=== PATIENT | female | born 1935 | race Caucasian/White ===

== ENCOUNTER → 2016-08-06 | Outpatient (CLI) | payer MEDICARE ==
[~2016-08-06] VITALS: Ht 154.9 cm; Wt 51.6 kg
[~2016-08-06] MED LIST: CARV12.5 PO; FERR1TAB36 PO; FURO1TAB62 PO; GAS-80CH CHEW; INSULIN HUMAN REGULAR 1,000 UNITS/10 ML VIAL SQ PRN; LACTATED RINGER'S 1000 ML IV SCH; LOVA40TA PO; METOPROLOL TARTRATE 25 MG TAB PO PRN; PANT40TA3 PO; PROPOFOL 200 MG/20 ML AMP IV ONE; SODIUM CHLORID 0.9% 500 ML IV SCH
[2016-08-06 11:03] VITALS: BP 166/69; PULSE 59; RESP 20; TEMP 97.5; O2SAT 99
[2016-08-06 12:53] VITALS: TEMP 97.6
--- NOTE | 2016-08-06 12:53 | PD.PROCEDR ---
GI Procedure REFERRING PHYSICIAN Dr. Caputo PROCEDURE PERFORMED EGD INDICATION FOR PROCEDURE Follow-up on gastric and duodenal ulcer PROCEDURE: The procedure, risks and benefits were discussed with Ms. Marino and informed consent was obtained. Anesthesia sedated her with Diprivan. She was placed in the left lateral decubitus position. EGD: The Pentax videoscope was introduced through the oropharynx and advanced to the second portion of the duodenum under direct visualization. Retroflexion was performed in the stomach. FINDINGS: The esophagus this was normal The stomach this was normal The duodenum this was normal ESTIMATED BLOOD LOSS: None SPECIMENS REMOVED: None COMPLICATIONS: None IMPRESSION: Normal EGD PLAN: Continue with current therapy Follow-up as needed Vivek Jeong MD Aug 06, 2016 12:53
[2016-08-06 13:03] VITALS: BP 149/66; PULSE 60; RESP 16; O2SAT 100
== END ==
LOC: HEND 09:57
PROVIDERS: ATTEND Internal Medicine Gastroenterology
DX: D64.9 Anemia, unspecified (principal); Z87.11 Personal history of peptic ulcer disease; I12.9 Hypertensive chronic kidney disease with stage 1 through stage 4 chronic kidney disease, or unspecified chronic kidney disease; N18.4 Chronic kidney disease, stage 4 (severe); Z79.82 Long term (current) use of aspirin
CPT/HCPCS: 00740; 43235; J7120

== ENCOUNTER 2018-06-01 09:39 | Inpatient (IN) ==
--- NOTE | 2018-06-01 10:08 | ED ---
HPI General Chief complaint: Shortness of Breath/Dyspnea Stated complaint: Resp complaint Time Seen by Provider: 06/01/18 09:40 History of Present Illness HPI narrative: Patient is a 82-year-old female with a history of chronic kidney disease, CHF, COPD presents emergency department with shortness of breath since yesterday. Patient states last time this happened she was diagnosed with fluid on her lungs had to be placed in the hospital on Lasix. She patient states she is on Lasix at home with her intervention manager whom she believes is Dr. Collier. She states recently she was switched from Lasix twice daily to Lasix daily. Denies any cough congestion fevers. Does endorse some sneezing fits. No chest pain no abdominal pain no nausea vomiting diarrhea constipation. No leg swelling. Related Data Home Medications Medication Instructions Recorded Confirmed amlodipine 10 mg PO DAILY 06/01/18 06/01/18 carvedilol 25 mg PO BID 06/01/18 06/01/18 furosemide [Lasix] 20 mg PO DAILY 06/01/18 06/01/18 lovastatin 40 mg PO QPM 06/01/18 06/01/18 Allergies Allergy/AdvReac Type Severity Reaction Status Date / Time No Known Allergies Allergy Verified 06/01/18 09:45 Review of Systems ROS: all other systems reviewed are negative PMFSH Social History Social History Substance History: No History of Abuse Second Hand Smoke Exposure: No Smoking Status: Former smoker Tobacco Type: Cigarettes How Often Do You Have a Drink Containing Alcohol: Never Recent Travel in [facility] within the Last 8 Weeks: No Recent Out of Country Travel within the Last 8 Weeks: No Immunization History Tetanus Immunization: <5 Years Exam Narrative Exam Narrative: GENERAL: Well-developed well-nourished, mild tachypnea, able to speak in full sentences. SKIN: Focused skin assessment warm/dry. HEAD: Atraumatic. Normocephalic. EYES: Pupils equal and round. No scleral icterus. No injection or drainage. ENT: No nasal bleeding or discharge. Mucous membranes pink and moist. NECK: Trachea midline. No JVD. CARDIOVASCULAR: Regular rate and rhythm. No murmur appreciated. RESPIRATORY: No accessory muscle use. Patient has bibasilar rales, rales could also be heard anteriorly or bad laterally. There is good air entry, scant wheeze and expiratory only.. Breath sounds equal bilaterally. GASTROINTESTINAL: Abdomen soft, non-tender, nondistended. Hepatic and splenic margins not palpable. MUSCULOSKELETAL: No obvious deformities. No clubbing. No cyanosis. No edema. NEUROLOGICAL: Awake and alert. No obvious cranial nerve deficits. Motor grossly within normal limits. Normal speech. PSYCHIATRIC: Appropriate mood and affect; insight and judgment normal. Course Initial Documented Vital Signs Pulse Rate 60 06/01/18 09:49 Respiratory Rate 19 06/01/18 09:49 Blood Pressure 149/68 H 06/01/18 09:49 Pulse Oximetry 86 L 06/01/18 09:49 Last Documented Vital Signs Temperature 98.1 F 06/02/18 00:00 Pulse Rate 61 06/02/18 00:00 Respiratory Rate 18 06/02/18 00:00 Blood Pressure 128/60 06/02/18 00:00 Pulse Oximetry 93 L 06/02/18 00:00 Medical Decision Making MDM Narrative Medical decision making narrative: Patient room to the emergency department, rales heard throughout her lung [place], mildly hypoxic on room air she was placed on nasal cannula. She is followed by Dr. Caputo until his mcc. She is also seeing Dr. Collier and intervention manager. Chest x-ray does show some pulmonary vascular congestion. Review of an echocardiogram in 2016 showed moderate aortic stenosis and mild mitral regurgitation. EF was not listed. Patient was given 40 mg of Lasix, will discuss with [facility] for admission status for acute congestive heart failure with hypoxia. Medical Screen Exam Complete: Yes Emergency Medical Condition: Yes Lab Data Result diagrams: 06/01/18 10:33 06/02/18 04:15 Lab Results 06/01/18 06/01/18 06/01/18 Range/Units 10:33 10:33 10:33 WBC 5.9 (4.0-11.0) th/mm3 RBC 3.51 L (4.00-5.30) mil/mm3 Hgb 10.7 L (11.6-15.3) gm/dL Hct 31.4 L (35.0-46.0) % MCV 89.5 (80.0-100.0) fL MCH 30.6 (27.0-34.0) pg MCHC 34.2 (32.0-36.0) % RDW 13.7 (11.6-17.2) % Plt Count 264 (150-450) th/mm3 MPV 8.2 (7.0-11.0) fL Neut % (Auto) 70.7 H (16.0-70.0) % Lymph % (Auto) 14.7 (9.0-44.0) % [place] % (Auto) 7.4 (0.0-8.0) % Eos % (Auto) 6.4 H (0.0-4.0) % Baso % (Auto) 0.8 (0.0-2.0) % Neut # (Auto) 4.1 (1.8-7.7) th/mm3 Lymph # (Auto) 0.9 L (1.0-4.8) th/mm3 Hancock # (Auto) 0.4 (0.0-0.9) th/mm3 Eos # (Auto) 0.4 (0.0-0.4) th/mm3 Baso # (Auto) 0.0 (0.0-0.2) th/mm3 WBC Differential . Differential Comment Auto diff final Sodium 139 (136-145) meq/L Potassium 4.6 (3.5-5.1) meq/L Chloride 103 (98-107) meq/L Carbon Dioxide 28.8 (21.0-32.0) meq/L Anion Gap 7 (5-15) meq/L BUN 26 H (7-18) mg/dL Creatinine 2.01 H (0.50-1.00) mg/dL Estimated GFR 24 L (>89) mL/min Random Glucose 93 (74-106) mg/dL Calcium 8.9 (8.5-10.1) mg/dL Total Bilirubin 0.4 (0.2-1.0) mg/dL AST 18 (15-37) U/L ALT 17 (10-53) U/L Alkaline Phosphatase 70 (45-117) U/L Troponin I Less than 0.02 L (0.02-0.05) ng/mL B-Natriuretic Peptide 273 H (0-100) pg/mL Total Protein 8.2 (6.4-8.2) g/dL Albumin 3.8 (3.4-5.0) g/dL Urine Color (Yellw/Straw) Urine Clarity (Clear) Urine pH (5.0-8.5) Ur Specific [place] (1.002-1.035) Urine Protein (Neg-Trace) mg/dL Urine Glucose (UA) (Negative) mg/dL Urine Ketones (Negative) mg/dL Urine Occult Blood (Negative) Urine Nitrate (Negative) Urine Bilirubin (Negative) Urine Urobilinogen (Less than 2) mg/dL Ur Leukocyte Esterase (Negative) Urine RBC (0-3) /hpf Urine WBC (0-5) /hpf Ur Squamous Epith Cells (0-5) /hpf Urine Bacteria (None) /hpf Micro UA Comment Ur Microscopic Review Urine Culture Comments 06/01/18 06/02/18 Range/Units 13:00 04:15 WBC (4.0-11.0) th/mm3 RBC (4.00-5.30) mil/mm3 Hgb (11.6-15.3) gm/dL Hct (35.0-46.0) % MCV (80.0-100.0) fL MCH (27.0-34.0) pg MCHC (32.0-36.0) % RDW (11.6-17.2) % Plt Count (150-450) th/mm3 MPV (7.0-11.0) fL Neut % (Auto) (16.0-70.0) % Lymph % (Auto) (9.0-44.0) % [place]ancock % (Auto) (0.0-8.0) % Eos % (Auto) (0.0-4.0) % Baso % (Auto) (0.0-2.0) % Neut # (Auto) (1.8-7.7) th/mm3 Lymph # (Auto) (1.0-4.8) th/mm3 [place]ancock # (Auto) (0.0-0.9) th/mm3 Eos # (Auto) (0.0-0.4) th/mm3 Baso # (Auto) (0.0-0.2) th/mm3 WBC Differential Differential Comment Sodium 142 (136-145) meq/L Potassium 4.2 (3.5-5.1) meq/L Chloride 104 (98-107) meq/L Carbon Dioxide 30.3 (21.0-32.0) meq/L Anion Gap 8 (5-15) meq/L BUN 26 H (7-18) mg/dL Creatinine 1.89 H (0.50-1.00) mg/dL Estimated GFR 25 L (>89) mL/min Random Glucose 70 L (74-106) mg/dL Calcium 8.7 (8.5-10.1) mg/dL Total Bilirubin 0.4 (0.2-1.0) mg/dL AST 16 (15-37) U/L ALT 13 (10-53) U/L Alkaline Phosphatase 60 (45-117) U/L Troponin I (0.02-0.05) ng/mL B-Natriuretic Peptide (0-100) pg/mL Total Protein 7.0 D (6.4-8.2) g/dL Albumin 3.2 L D (3.4-5.0) g/dL Urine Color Yellow (Yellw/Straw) Urine Clarity Hazy H (Clear) Urine pH 5.0 (5.0-8.5) Ur Specific [place] 1.012 (1.002-1.035) Urine Protein 100 H (Neg-Trace) mg/dL Urine Glucose (UA) Negative (Negative) mg/dL Urine Ketones Negative (Negative) mg/dL Urine Occult Blood Negative (Negative) Urine Nitrate Negative (Negative) Urine Bilirubin Negative (Negative) Urine Urobilinogen Less than 2 (Less than 2) mg/dL Ur Leukocyte Esterase Moderate H (Negative) Urine RBC 1 (0-3) /hpf Urine WBC 11 H (0-5) /hpf Ur Squamous Epith Cells <1 (0-5) /hpf Urine Bacteria Rare H (None) /hpf Micro UA Comment Culture indicated Ur Microscopic Review Not Reportable Urine Culture Comments Culture indicated Imaging Data Radiologist's impression: Chest X-Ray 06/01/18 10:31 CONCLUSION: 1. Cardiomegaly with pulmonary vascular congestion. 2. Small bilateral pleural effusions with associated lower lobe airspace disease. Chest X-Ray 06/02/18 08:00 CONCLUSION: Overall improvement in pleural effusions and right lung base consolidation. Discharge Plan Discharge Disposition Patient Disposition: 30 Still Patient Discharge Condition Condition: Fair Discharge Details Diagnosis: SOB (shortness of breath), Acute exacerbation of CHF (congestive heart failure) , Hypoxia Physicians Team ED Provider: Eliel Lee Primary Care Provider: UNKNOWN, Attending Provider: Vahid Yin Discharge Interventions Interventions: ED Discharge Assessment Last Done: 06/01/18 16:44 Status ED Status: Left Department Discharge Information Discharge Date/Time: 06/01/18 16:40
[2018-06-01 11:10] LABS: Baso % (Auto) 0.8 % (0.0-2.0); Eos # (Auto) 0.4 th/mm3 (0.0-0.4); Eos % (Auto) 6.4 % (0.0-4.0); Hematocrit 31.4 % (35.0-46.0); Hemoglobin 10.7 gm/dL (11.6-15.3); Lymph # (Auto) 0.9 th/mm3 (1.0-4.8); Lymph % (Auto) 14.7 % (9.0-44.0); Mean Corpuscular HGB Conc 34.2 % (32.0-36.0); Mean Corpuscular Hemoglobin 30.6 pg (27.0-34.0); Mean Corpuscular Volume 89.5 fL (80.0-100.0); Mean Platelet Volume 8.2 fL (7.0-11.0); Mono # (Auto) 0.4 th/mm3 (0.0-0.9); Mono % (Auto) 7.4 % (0.0-8.0); Neut # (Auto) 4.1 th/mm3 (1.8-7.7); Neut % (Auto) 70.7 % (16.0-70.0); Platelet Count 264 th/mm3 (150-450); Red Blood Count 3.51 mil/mm3 (4.00-5.30); Red Cell Distribution Width 13.7 % (11.6-17.2); White Blood Count 5.9 th/mm3 (4.0-11.0)
--- NOTE | 2018-06-01 11:13 | XR ---
EXAM DATE: 06/01/2018 11:08 AM EST AGE/SEX: 82 years / Female INDICATIONS: . Shortness of breath with wheezing. CLINICAL DATA: This is the patient's initial encounter. Patient reports that signs and symptoms have been present for 1 day and indicates a pain score of 0/10. MEDICAL/SURGICAL HISTORY: Chronic obstructive pulmonary disease. Congestive heart failure. Non e. COMPARISON: [facility] – [place], CHEST SINGLE AP, 06/12/2016. . FINDINGS: Small bilateral pleural effusions with associated airspace disease at the lung bases. Mild diffuse in terstitial prominence slightly progressed from prior exam. Cardiac silhouette is enlarged with indist inct central pulmonary vascularity. Remainder of exam is unchanged. CONCLUSION: 1. Cardiomegaly with pulmonary vascular congestion. 2. Small bilateral pleural effusions with associated lower lobe airspace disease. Electronically signed by: Sahil Ovalle MD 06/01/2018 11:12 AM EST
[2018-06-01 11:36] LABS: Albumin 3.8 g/dL (3.4-5.0); Anion Gap 7 meq/L (5-15); Aspartate Aminotransferase 18 U/L (15-37); Blood Urea Nitrogen 26 mg/dL (7-18); Calcium 8.9 mg/dL (8.5-10.1); Carbon Dioxide 28.8 meq/L (21.0-32.0); Chloride 103 meq/L (98-107); Glomerular Filtration Rate 24 mL/min (>89); Glucose,Random 93 mg/dL (74-106); Potassium 4.6 meq/L (3.5-5.1); Sodium 139 meq/L (136-145)
[2018-06-01 11:40] LABS: Alanine Aminotransferase 17 U/L (10-53); Alkaline Phosphatase 70 U/L (45-117); Total Protein 8.2 g/dL (6.4-8.2)
[2018-06-01] MEDS ORDERED: Acetaminophen 325 MG Tablet PO PRN (12:20)
--- NOTE | 2018-06-01 13:51 | P.HPIM ---
History of Present Illness Primary Care Physician: Roya Wu Chief Complaint: Worsening SOB x 1 day History of Present Illness: This is an 82-year-old female patient with past medical history which includes hypertension, CAD status post PCI with D EMS to the RCA 2010 and LAD 2009, aortic stenosis, pulmonary hypertension, peripheral vascular disease, intermitted claudication, chronic kidney disease stage IV, secondary hyperparathyroidism of renal origin. Patient reports her valet service attendant Dr. Chavarria recently switched her from twice a day Lasix to once a day Lasix. Patient reports that she has had worsening shortness of breath which started yesterday during the day. Patient is currently requiring 3 L nasal cannula which she does not normally on oxygen at home. Patient denies nausea vomiting diarrhea constipation fevers chills weight gain lower extremity edema or chest pain. PMH: hypertension, CAD status post PCI with [facility] to the RCA 2010 and LAD 2009, aortic stenosis, pulmonary hypertension, peripheral vascular disease, intermitted claudication, chronic kidney disease stage IV, secondary hyperparathyroidism of renal origin PSxH: Appendectomy, [facility] to the RCA 2010 and LAD 2009, colonoscopy, sigmoidoscopy, hysterectomy, thromboendarterectomy FMH: CHF, diabetes mellitus, esophageal cancer Social history: Denies EtOH use Former tobacco use Denies illicit drug use Inpatient Certification Inpatient Certification: I certify that the inpatient services were ordered in accordance with Medicare regulations governing the order. This includes certification that hospital inpatient services are reasonable and necessary and in the case of services not specified as inpatient-only under 42 CFR 419.22(n), that they are appropriately provided as inpatient services in accordance to with the 2-midnight benchmark under 43 CFR 412.3(e) Estimated Total Length of Stay (Days): 3 Plans for Post Hospital Care: Not yet determined Medications and Allergies Allergies Allergy/AdvReac Type Severity Reaction Status Date / Time No Known Allergies Allergy Verified 06/01/18 09:45 Home Medications Medication Instructions Recorded Confirmed Type amlodipine 10 mg PO DAILY 06/01/18 06/01/18 History carvedilol 25 mg PO BID 06/01/18 06/01/18 History furosemide [Lasix] 20 mg PO DAILY 06/01/18 06/01/18 History lovastatin 40 mg PO QPM 06/01/18 06/01/18 History Active Medications: Active Medications Acetaminophen (Tylenol) 650 mg PO Q4H PRN PRN Reason: Temp > 100.4 Al Hydroxide/Mg Hydroxide (Milk Of Reema Marie) 30 ml PO Q12H PRN PRN Reason: Mild Constipation Amlodipine Besylate (Norvasc) 10 mg PO DAILY NATAN Carvedilol (Coreg) 25 mg PO BID NATAN Clonidine HCl (Catapres) 0.2 mg PO Q6H PRN PRN Reason: SBP>160, DBP>90 Enalaprilat (Vasotec Inj) 2.5 mg IV.PUSH Q6H PRN PRN Reason: SYS BP GREATER THAN 160 MMHG Furosemide (Lasix Inj) 40 mg IV.PUSH BID@0900,1800 NATAN Ondansetron HCl (Zofran Inj) 4 mg IV.PUSH Q6H PRN PRN Reason: NAUSEA OR VOMITING Pravastatin Sodium (Pravachol) 40 mg PO QPM NATAN Senna/Docusate Sodium (Loyda-Colace) 1 tab PO BID NATAN Sodium Chloride (Ns Flush) 2 ml IV.FLUSH UNSCH PRN PRN Reason: FLUSH AFTER USING IV ACCESS Last Admin: 06/01/18 12:12 Dose: 2 ml Physical Exam Vital signs: Last Vital Signs Temp 97.6 F 06/01/18 09:51 Pulse 67 06/01/18 12:57 Resp 21 06/01/18 12:57 BP 138/105 H 06/01/18 12:57 Pulse Ox 96 06/01/18 12:57 Narrative: GENERAL: This is a well-nourished, well-developed patient, in no apparent distress. CARDIOVASCULAR: Regular rate and rhythm without murmurs, gallops, or rubs. RESPIRATORY: faint crackles right lung base GASTROINTESTINAL: Abdomen soft, non-tender, nondistended. Normal active bowel sounds MUSCULOSKELETAL: Extremities without clubbing, cyanosis, or edema. NEURO: Alert & Oriented. Moves all ext x4 Results Labs CBC & Chem 7: 06/01/18 10:33 06/01/18 10:33 Caprini VTE Risk Assessment Caprini VTE Risk Assessment: Moderate/High Risk (score >= 2) Caprini Risk Assessment Model: Point Value = 1 Point Value = 2 Point Value = 3 Point Value = 5 Age 41-60 Minor surgery BMI > 25 kg/m2 Swollen legs Varicose veins or History of unexplained or recurrent spontaneous Oral contraceptives or hormone replacement Sepsis (< 1 month) Serious lung disease, including pneumonia (< 1 month) Abnormal pulmonary function Acute myocardial infarction Congestive heart failure (< 1 month) History of inflammatory bowel disease Medical patient at bed rest Age 61-74 Arthroscopic surgery Major open surgery (> 45 min) Laparoscopic surgery (> 45 min) Malignancy Confined to bed (> 72 hours) Immobilizing plaster cast Central venous access Age >= 75 History of VTE Family history of VTE Factor V Leiden Prothrombin [id number] Lupus anticoagulant Anticardiolipin antibodies Elevated serum homocysteine Heparin-induced thrombocytopenia Other congenital or acquired thrombophilia Stroke (< 1 month) Elective arthroplasty Hip, pelvis, or leg fracture Acute spinal cord injury (< 1 month) Prophylaxis Regimen: Total Risk Factor Score Risk Level Prophylaxis Regimen 0-1 Low Early ambulation 2 Moderate Order ONE of the following: *Sequential Compression Device (SCD) *Heparin 5000 units SQ BID 3-4 Higher Order ONE of the following medications: *Heparin 5000 units SQ TID *Enoxaparin/Lovenox 40 mg SQ daily (WT < 150 kg, CrCl > 30 mL/min) *Enoxaparin/Lovenox 30 mg SQ daily (WT < 150 kg, CrCl > 10-29 mL/min) *Enoxaparin/Lovenox 30 mg SQ BID (WT < 150 kg, CrCl > 30 mL/min) AND/OR *Sequential Compression Device (SCD) 5 or more Highest Order ONE of the following medications: *Heparin 5000 units SQ TID (Preferred with Epidurals) *Enoxaparin/Lovenox 40 mg SQ daily (WT < 150 kg, CrCl > 30 mL/min) *Enoxaparin/Lovenox 30 mg SQ daily (WT < 150 kg, CrCl > 10-29 mL/min) *Enoxaparin/Lovenox 30 mg SQ BID (WT < 150 kg, CrCl > 30 mL/min) AND *Sequential Compression Device (SCD) Assessment and Plan Plan This is an 82-year-old female patient with past medical history which includes hypertension, CAD status post PCI with D EMS to the RCA 2010 and LAD 2009, aortic stenosis, pulmonary hypertension, peripheral vascular disease, intermitted claudication, chronic kidney disease stage IV, secondary hyperparathyroidism of renal origin. Patient reports her valet service attendant Dr. Chavarria recently switched her from twice a day Lasix to once a day Lasix. Patient reports that she has had worsening shortness of breath which started yesterday during the day. Patient is currently requiring 3 L nasal cannula which she does not normally on oxygen at home. Patient denies nausea vomiting diarrhea constipation fevers chills weight gain lower extremity edema or chest pain. Acute CHF exacerbation Per patient home lasix was recently reduced to once a day per outpatient Nephrology BNP 273 CXR reviewed and reveals: 1. Cardiomegaly with pulmonary vascular congestion. 2. Small bilateral pleural effusions with associated lower lobe airspace disease Lasix 40mg IV BID Continuous telemetry Daily weight Recheck BMP in AM CAD status post PCI with [facility] to the RCA 2010 and LAD 2009, Aortic stenosis Pulmonary hypertension, CHF unknown type 2 D echocardiogram Hypertension Continue patients home amlodipine 10 mg PO daily, Carvedilol 25 mg Po BID Hyperlipidemia Continue Lovastatin 40 mg PO QPM Chronic kidney disease stage IV Monitor renal function Repeat BMP in AM PT eval and treat DVT prophylaxis with SCDs
[2018-06-01 14:10] LABS: Bacteria,Urine Rare /hpf; Bilirubin,Urine Negative (Negative); Clarity,Urine Hazy (Clear); Color,Urine Yellow (Yellw/Straw); Glucose,Urine (UA) Negative (Negative); Leukocyte Esterase,Urine Moderate (Negative); Nitrite,Urine Negative (Negative); Specific Gravity,Urine 1.012 (1.002-1.035); Squamous Epithelial Cell,Urine <1 /hpf (0-5)
--- NOTE | 2018-06-01 18:20 | ECG ---
Date Performed: 06/01/2018 Time Performed: 09:52:08 PTAGE: 82 years EKG: SINUS BRADYCARDIA NONSPECIFIC T-WAVE ABNORMALITY BORDERLINE ECG PREVIOUS TRACING : 06/13/2016 04.11 Since the previous tracing, no significant change noted DOCTOR: Herbert Escobar Interpretating Date/Time 06/01/2018 18:19:35
[2018-06-01] MEDS: Carvedilol 12.5 MG Tablet PO SCH (21:06)
[2018-06-01] MEDS: Senna/Docusate Sodium 8.6/50 MG Tablet PO SCH (21:07)
[2018-06-02 07:03] LABS: Albumin 3.2 g/dL (3.4-5.0); Anion Gap 8 meq/L (5-15); Aspartate Aminotransferase 16 U/L (15-37); Blood Urea Nitrogen 26 mg/dL (7-18); Calcium 8.7 mg/dL (8.5-10.1); Carbon Dioxide 30.3 meq/L (21.0-32.0); Chloride 104 meq/L (98-107); Glomerular Filtration Rate 25 mL/min (>89); Glucose,Random 70 mg/dL (74-106); Potassium 4.2 meq/L (3.5-5.1); Sodium 142 meq/L (136-145)
[2018-06-02 07:06] LABS: Alanine Aminotransferase 13 U/L (10-53); Alkaline Phosphatase 60 U/L (45-117)
--- NOTE | 2018-06-02 08:20 | XR ---
EXAM DATE: 06/02/2018 8:12 AM EST AGE/SEX: 82 years / Female INDICATIONS: . Short of breath CLINICAL DATA: This is the patient's subsequent encounter. Patient reports that signs and symptoms h ave been present for 3 days and indicates a pain score of 0/10. MEDICAL/SURGICAL HISTORY: Congestive heart failure. Chronic obstructive pulmonary disease. Con gestive heart failure. None. COMPARISON: [facility] – [place], CHEST 2V PA&LAT, 06/01/2018. . FINDINGS: The previously seen bilateral pleural effusions appear smaller with a tiny left pleural effusion and a small right pleural effusion remaining. Slight cardiomegaly remains with mild prominence of interst itial markings and the slight consolidation right lung base is also suspected, however improved. CONCLUSION: Overall improvement in pleural effusions and right lung base consolidation. Electronically signed by: Henna Nuno MD 06/02/2018 8:19 AM EST
[2018-06-02] MEDS ORDERED: amLODIPine 10 MG Tablet PO SCH (09:00)
[2018-06-02] MEDS: Carvedilol 12.5 MG Tablet PO SCH (10:32)
[2018-06-02] MEDS: Senna/Docusate Sodium 8.6/50 MG Tablet PO SCH (10:32)
--- NOTE | 2018-06-02 11:55 | P.DCO ---
Home Health Nursing Order: Medical education, Signs/symptoms of disease process, CHF education, Oxygen administration education, Medication education-adverse effect and Nursing assessment with vital signs Case Management Consult No I have seen patient Isabel Marino on 06/02/18. My clinical findings support the need for the requested home health care services because: Limited mobility due to disease progression, Patient has SOB, Medication compliance is questionable, Limited ability to care for self and Need for psychosocial assistance I certify that my clinical findings support that this patient is homebound because: Unsafe to leave home unassisted, Need for psychosocial assistance, Unable to use public transportation and Poor cardiac reserve
--- NOTE | 2018-06-02 13:04 | ECHRPT ---
Indication: HEART FAILURE CONCLUSIONS Mild concentric left ventricular hypertrophy. The left ventricular systolic function is normal with an estimated ejection fraction in the range of 55-60%. Mild to moderate mitral valve regurgitation. Aortic valve sclerosis is present. Mild to moderate aortic valve regurgitation. There is mild tricuspid valve regurgitation. The estimated pulmonary arterial pressure is 48 mmHg. BP: / HR: Rhythm: Sinus MEASUREMENTS (Male / Female) Normal Values Technical Quality:Fair 2D ECHO LV Diastolic Diameter PLAX 3.4 cm 4.2 - 5.9 / 3.9 - 5.3 cm LV Systolic Diameter PLAX 2.6 cm IVS Diastolic Thickness 0.9 cm 0.6 - 1.0 / 0.6 - 0.9 cm LVPW Diastolic Thickness 1.2 cm 0.6 - 1.0 / 0.6 - 0.9 cm LV Relative Wall Thickness 0.6 LVOT Diameter 1.8 cm LA Systolic Diameter LX 3.0 cm 3.0 - 4.0 / 2.7 - 3.8 cm LV Ejection Fraction MOD 4C 55.4 % LV Ejection Fraction 4C AL 54.9 % DOPPLER AV Peak Velocity 229.0 cm/s AV Peak Gradient 21.0 mmHg AV Mean Gradient 11.0 mmHg AV Velocity Time Integral 53.5 cm AI Peak Velocity 312.5 cm/s AI Peak Gradient 39.1 mmHg AI Pressure Half Time 408.0 ms LVOT Peak Velocity 123.0 cm/s LVOT Peak Gradient 6.1 mmHg LVOT Velocity Time Integral 27.7 cm AV Area Cont Eq vti 1.4 cm AV Area Cont Eq pk 1.4 cm MR Peak Velocity 452.0 cm/s MR Peak Gradient 81.7 mmHg Mitral E Point Velocity 116.0 cm/s Mitral A Point Velocity 87.6 cm/s Mitral E to A Ratio 1.3 LV E' Lateral Velocity 10.4 cm/s Mitral E to LV E' Lateral Ratio 11.2 LV E' Septal Velocity 8.2 cm/s Mitral E to LV E' Septal Ratio 14.2 TR Peak Velocity 309.0 cm/s TR Peak Gradient 38.2 mmHg Right Atrial Pressure 10.0 mmHg Pulmonary Artery Systolic Pressu 48.2 mmHg Right Ventricular Systolic Press 48.2 mmHg PV Peak Velocity 89.8 cm/s PV Peak Gradient 3.2 mmHg FINDINGS LEFT VENTRICLE Normal left ventricular size. Mild concentric left ventricular hypertrophy. The left ventricular systolic function is normal with an estimated ejection fraction in the range of 55-60%. RIGHT VENTRICLE Normal right ventricular size and systolic function. LEFT ATRIUM The left atrial size is normal. RIGHT ATRIUM The right atrial size is normal. ATRIAL SEPTUM Normal atrial septal thickness without atrial level shunting by limited color doppler interrogation. AORTA The aortic root and proximal ascending aorta are not well visualized. MITRAL VALVE Structurally normal mitral valve. Mild mitral valve regurgitation. AORTIC VALVE Aortic valve sclerosis is present. Moderate aortic valve regurgitation. TRICUSPID VALVE Structurally normal tricuspid valve. There is mild tricuspid valve regurgitation. The estimated pulmonary arterial pressure is 48 mmHg. PULMONARY VALVE No pulmonary valve regurgitation or stenosis. PERICARDIUM No pericardial effusion. Jett Harper MD, FACC, FSCAI (Electronically Signed) Final Date:02 June 2018 13:03
--- NOTE | 2018-06-02 13:44 | P.DS ---
DS: Providers Date of admission: 06/01/18 12:33 Primary care physician: UNKNOWN DS: Diagnosis Discharge Diagnosis (1) Acute exacerbation of CHF (congestive heart failure): Status: Acute (2) Hypoxia: Status: Acute (3) SOB (shortness of breath): Status: Acute DS: Summary This is an 82-year-old female patient with past medical history which includes hypertension, CAD status post PCI with [facility] to the RCA 2010 and LAD 2009, aortic stenosis, pulmonary hypertension, peripheral vascular disease, intermitted claudication, chronic kidney disease stage IV, secondary hyperparathyroidism of renal origin. Patient reports her senior grant writer Dr. Chavarria recently switched her from twice a day Lasix to once a day Lasix. Patient reports that she has had worsening shortness of breath which started yesterday during the day. Patient is currently requiring 3 L nasal cannula which she does not normally on oxygen at home. Patient denies nausea vomiting diarrhea constipation fevers chills weight gain lower extremity edema or chest pain. Acute CHF exacerbation Per patient home lasix was recently reduced to once a day per outpatient Nephrology BNP 273 CXR reviewed and reveals: 1. Cardiomegaly with pulmonary vascular congestion. 2. Small bilateral pleural effusions with associated lower lobe airspace disease Lasix 40mg IV BID Continuous telemetry Daily weight Recheck BMP in AM CAD status post PCI with [facility] to the RCA 2010 and LAD 2009, Aortic stenosis Pulmonary hypertension, CHF unknown type 2 D echocardiogram : Mild concentric left ventricular hypertrophy. The left ventricular systolic function is normal with an estimated ejection fraction in the range of 55-60%. Mild to moderate mitral valve regurgitation. Aortic valve sclerosis is present. Mild to moderate aortic valve regurgitation. There is mild tricuspid valve regurgitation. The estimated pulmonary arterial pressure is 48 mmHg Hypertension Continue patients home amlodipine 10 mg PO daily, Carvedilol 25 mg Po BID Hyperlipidemia Continue Lovastatin 40 mg PO QPM Chronic kidney disease stage IV Monitor renal function On admission creatinine 2.01 -> 1.89 (06/02) Repeat BMP outpatient Wednesday results to PCP and Dr. Chavarria PT eval and treat - recommending home with C Discussed possible DC to SNF but patient refused at this time. Patient would like to DC home agrees to C. DVT prophylaxis with SCDs Time Spent with Patient Total time spent providing and/or coordinating discharge services: Quality: VTE Deep Vein Thrombosis/Pulmonary Embolism Present on Admission: No Exam Narrative Exam Narrative: GENERAL: This is a well-nourished, well-developed patient, in no apparent distress. CARDIOVASCULAR: Regular rate and rhythm without murmurs, gallops, or rubs. RESPIRATORY: clear through out GASTROINTESTINAL: Abdomen soft, non-tender, nondistended. Normal active bowel sounds MUSCULOSKELETAL: Extremities without clubbing, cyanosis, or edema. NEURO: Alert & Oriented. Moves all ext x4 DS: Data Labs on day of discharge: Labs from last 24 hours 06/02/18 06/01/18 04:15 13:00 Sodium 142 Potassium 4.2 Chloride 104 Carbon Dioxide 30.3 Anion Gap 8 BUN 26 H Creatinine 1.89 H Estimated GFR 25 L Random Glucose 70 L Calcium 8.7 Total Bilirubin 0.4 AST 16 ALT 13 Alkaline Phosphatase 60 Total Protein 7.0 D Albumin 3.2 L D Urine Color Yellow Urine Clarity Hazy H Urine pH 5.0 Ur Specific [place] 1.012 Urine Protein 100 H Urine Glucose (UA) Negative Urine Ketones Negative Urine Occult Blood Negative Urine Nitrate Negative Urine Bilirubin Negative Urine Urobilinogen Less than 2 Ur Leukocyte Esterase Moderate H Urine RBC 1 Urine WBC 11 H Ur Squamous Epith Cells <1 Urine Bacteria Rare H Micro UA Comment Culture indicated Ur Microscopic Review Not Reportable Urine Culture Comments Culture indicated Preliminary micro results at discharge 06/01/18 13:00 Urine Culture - Preliminary Clean Catch Urine Immature growth - reincubate Impressions Chest X-Ray 06/01/18 10:31 CONCLUSION: 1. Cardiomegaly with pulmonary vascular congestion. 2. Small bilateral pleural effusions with associated lower lobe airspace disease. Chest X-Ray 06/02/18 08:00 CONCLUSION: Overall improvement in pleural effusions and right lung base consolidation. Discharge Plan Discharge Disposition Patient Disposition: W/Home Health Service Discharge Condition Condition: Stable Discharge Order Discharge Orders: Discharge Order (Routine); Ordered 06/02/18 Ordered By: Alva Rueda Discharge Details Anticipated Discharge Date: 06/02/18 Physicians Team ED Provider: Eliel Lee Primary Care Provider: UNKNOWN, Attending Provider: Vahid Yin Rxs /Orders / Referrals /Forms Prescriptions: New furosemide [Lasix] 40 mg tablet 40 mg PO DAILY Qty: 30 RF: 0 Continue carvedilol 25 mg Tablet 25 mg PO BID RF: 0 lovastatin 40 mg Tablet 40 mg PO QPM RF: 0 amlodipine 10 mg Tablet 10 mg PO DAILY RF: 0 Discontinued furosemide [Lasix] 20 mg Tablet 20 mg PO DAILY RF: 0 Ambulatory Orders / Order Sets / DME: Oxygen Tank (2 liter) (Routine) Location: Determined by Patient Ordered By: Alav Rueda Referrals: Merced Chavarria MD [Physician] - See Instructions (Follow up in 1-2 weeks) UNKNOWN, [Primary Care Provider] - See Instructions (Follow up with PCP Roya Wu in 1 week) Discharge Instructions Additional Instructions: Possible new PCP Dr. Lynsey Huber Status ED Status: Left Department
[2018-06-02 16:36] VITALS: BP 130/60; PULSE 72; RESP 18; TEMP 98.2; O2SAT 93
== END 2018-06-02 19:17 | disposition home health service (06) ==
LOC: NEPE 09:39 → NEDA 12:33 → N07 16:34
PROVIDERS: ADMIT Hospitalist; ATTEND Hospitalist
DX: E11.51 Type 2 diabetes mellitus with diabetic peripheral angiopathy without gangrene; Z87.891 Personal history of nicotine dependence; I27.20 Pulmonary hypertension, unspecified; I08.3 Combined rheumatic disorders of mitral, aortic and tricuspid valves; N18.4 Chronic kidney disease, stage 4 (severe); Z82.49 Family history of ischemic heart disease and other diseases of the circulatory system; N25.81 Secondary hyperparathyroidism of renal origin; E11.22 Type 2 diabetes mellitus with diabetic chronic kidney disease; E78.5 Hyperlipidemia, unspecified; Z83.3 Family history of diabetes mellitus; R09.02 Hypoxemia; Z85.01 Personal history of malignant neoplasm of esophagus; I25.10 Atherosclerotic heart disease of native coronary artery without angina pectoris; Z95.5 Presence of coronary angioplasty implant and graft; J44.9 Chronic obstructive pulmonary disease, unspecified; I13.0 Hypertensive heart and chronic kidney disease with heart failure and stage 1 through stage 4 chronic kidney disease, or unspecified chronic kidney disease; I50.9 Heart failure, unspecified

== ENCOUNTER 2018-06-21 14:35 | Observation (INO) ==
[2018-06-21 15:19] LABS: Baso % (Auto) 0.6 % (0.0-2.0); Eos # (Auto) 0.3 th/mm3 (0.0-0.4); Eos % (Auto) 3.7 % (0.0-4.0); Hematocrit 31.9 % (35.0-46.0); Hemoglobin 10.3 gm/dL (11.6-15.3); Lymph # (Auto) 1.1 th/mm3 (1.0-4.8); Mean Corpuscular HGB Conc 32.4 % (32.0-36.0); Mean Corpuscular Hemoglobin 28.4 pg (27.0-34.0); Mean Corpuscular Volume 87.6 fL (80.0-100.0); Mean Platelet Volume 8.3 fL (7.0-11.0); Mono # (Auto) 0.6 th/mm3 (0.0-0.9); Mono % (Auto) 7.8 % (0.0-8.0); Neut # (Auto) 5.4 th/mm3 (1.8-7.7); Neut % (Auto) 72.9 % (16.0-70.0); Platelet Count 344 th/mm3 (150-450); Red Blood Count 3.64 mil/mm3 (4.00-5.30); Red Cell Distribution Width 13.7 % (11.6-17.2); White Blood Count 7.4 th/mm3 (4.0-11.0)
[2018-06-21 15:23] LABS: Chloride 101 meq/L (98-107); Potassium 3.7 meq/L (3.5-5.1); Sodium 140 meq/L (136-145)
[2018-06-21 15:26] LABS: Albumin 3.8 g/dL (3.4-5.0); Anion Gap 9 meq/L (5-15); Calcium 8.8 mg/dL (8.5-10.1); Carbon Dioxide 30.1 meq/L (21.0-32.0); Glucose,Random 123 mg/dL (74-106)
[2018-06-21 15:27] LABS: Blood Urea Nitrogen 34 mg/dL (7-18)
[2018-06-21 15:29] LABS: Alanine Aminotransferase 19 U/L (10-53); Aspartate Aminotransferase 19 U/L (15-37)
[2018-06-21 15:30] LABS: Glomerular Filtration Rate 31 mL/min (>89)
[2018-06-21 15:31] LABS: Total Protein 8.3 g/dL (6.4-8.2)
[2018-06-21 15:32] LABS: Alkaline Phosphatase 66 U/L (45-117)
--- NOTE | 2018-06-21 15:32 | XR ---
EXAM DATE: 06/21/2018 3:28 PM EST AGE/SEX: 82 years / Female INDICATIONS: Shortness of breath and left sided chest pain. CLINICAL DATA: This is the patient's initial encounter. Patient reports that signs and symptoms have been present for 2 weeks and indicates a pain score of 3/10. MEDICAL/SURGICAL HISTORY: Chronic obstructive pulmonary disease. Congestive heart failure. Non e. COMPARISON: [facility] – [place], CHEST 2V PA&LAT, 06/02/2018. . FINDINGS: Bibasilar infiltrates and effusions, increased from prior. Diffuse interstitial prominence grossly un changed. Visualized cardiac contours are stable. CONCLUSION: Bibasilar infiltrates and effusions Electronically signed by: Pete Abad MD 06/21/2018 3:31 PM EST
--- NOTE | 2018-06-21 15:50 | ED ---
HPI General Chief Complaint: Respiratory Symptoms Stated Complaint: CHF Time Seen by Provider: 06/21/18 15:05 Source: patient Mode of arrival: ambulatory Limitations: no limitations History of Present Illness MD Complaint: Reports shortness of breath Onset (ago): week(s) (2) Context: Reports occurred during exertion Severity: moderate Consistency/Duration: intermittent Relieving factors: rest Exacerbating factors: lying flat and exertion Known history of: Reports congestive heart failure Associated symptoms: Reports sputum production (Clear sputum) Treatment prior to arrival: Reports oxygen and diuretics Related Data Home oxygen amount: 2 liters Home Medications Medication Instructions Recorded Confirmed amlodipine 10 mg PO DAILY 06/01/18 06/21/18 carvedilol 25 mg PO BID 06/01/18 06/21/18 lovastatin 40 mg PO QPM 06/01/18 06/21/18 Previous Rx's Medication Instructions Recorded furosemide [Lasix] 40 mg PO DAILY #30 tab 06/02/18 Allergies Allergy/AdvReac Type Severity Reaction Status Date / Time No Known Allergies Allergy Verified 06/21/18 14:51 Review of Systems ROS: all other systems reviewed are negative [facility] Medical History Medical History CHF (congestive heart failure) (Acute) CKD (chronic kidney disease) (Acute) HTN (hypertension) (Acute) Myocardial infarct (Acute) Surgical History Surgical History H/O heart artery stent (Acute) Social History Social History Substance History: No History of Abuse Second Hand Smoke Exposure: No Smoking Status: Former smoker Tobacco Type: Cigarettes How Often Do You Have a Drink Containing Alcohol: Never Recent Travel in [facility] within the Last 8 Weeks: No Recent Out of Country Travel within the Last 8 Weeks: No Immunization History Tetanus Immunization: <5 Years Exam Const General: cooperative, healthy appearing, comfortable, no acute distress, well developed and well groomed Orientation: alert, awake and oriented x3 HENMT Head: normal to inspection, normocephalic and atraumatic Eyes Alignment and Position: alignment normal Conjunctivae: conjunctivae normal Sclera: sclerae normal EOM: EOM intact bilaterally Neck Neck: normal visual inspection and full ROM Chest Chest: normal inspection of the chest Resp Effort & Inspection: normal respiratory effort and able to speak in complete sentences Auscultation: diminished lung sounds and rales Cardio Rate: regular rate Rhythm: regular rhythm GI Inspection: normal to inspection Palpation: soft Back/Spine/Pelvis Cervical Spine: cervical ROM normal Thoracic/Lumbar Spine: thoraco-lumbar ROM normal Skin General: no rashes or lesions noted and turgor normal Neuro General: alert, awake, oriented x3, moves all extremities and CN's II-XI intact bilaterally Extrem General: normal to inspection and full ROM Psych Appearance: grossly normal Mental Status: mental status grossly normal Speech and Movement: speech and movement normal Mood: congruent mood Affect: normal affect Attitude: cooperative Thought Process: normal Thought Content: normal Judgment: judgment good Course Initial Documented Vital Signs Temperature 98.3 F 06/21/18 14:50 Pulse Rate 89 06/21/18 14:50 Respiratory Rate 24 06/21/18 14:50 Blood Pressure 174/78 H 06/21/18 14:50 Pulse Oximetry 84 L 06/21/18 14:50 Last Documented Vital Signs Temperature 98.3 F 06/21/18 14:50 Pulse Rate 89 06/21/18 14:50 Respiratory Rate 24 06/21/18 14:50 Blood Pressure 174/78 H 06/21/18 14:50 Pulse Oximetry 93 L 06/21/18 15:06 Medical Decision Making MDM Narrative Medical decision making narrative: This patient presents with a 2-week history of dyspnea on exertion and orthopnea. She has a history of congestive heart failure and is on chronic home oxygen at 2 L. She reports compliance with her Lasix. Her chest x-ray shows bilateral pleural effusions, right worse than left. She also has pulmonary vascular congestion. I have ordered Lasix 80 mg IV which is double her usual daily dose. The patient reports that she is amenable to admission to the hospital for further treatment of her congestive heart failure. Medical Screen Exam Complete: Yes Emergency Medical Condition: Yes Differential Diagnosis Differential Diagnosis: Differential diagnosis of dyspnea includes but is not limited to congestive heart failure, pneumonia, wheezing, pneumothorax, pulmonary embolism Medical Records Medical records reviewed: Yes I reviewed the patient's medical records. Lab Data Lab results reviewed: Yes I reviewed the patient's lab results. Result diagrams: 06/21/18 15:10 06/21/18 15:10 Lab Results 06/21/18 06/21/1806/21/18 Range/Units 15:10 15:10 15:10 CBC w Diff Auto diff final WBC 7.4 (4.0-11.0) th/mm3 RBC 3.64 L (4.00-5.30) mil/mm3 Hgb 10.3 L (11.6-15.3) gm/dL Hct 31.9 L (35.0-46.0) % MCV 87.6 (80.0-100.0) fL MCH 28.4 (27.0-34.0) pg MCHC 32.4 (32.0-36.0) % RDW 13.7 (11.6-17.2) % Plt Count 344 D (150-450) th/mm3 MPV 8.3 (7.0-11.0) fL Neut % (Auto) 72.9 H (16.0-70.0) % Lymph % (Auto) 15.0 (9.0-44.0) % [place] % (Auto) 7.8 (0.0-8.0) % Eos % (Auto) 3.7 (0.0-4.0) % Baso % (Auto) 0.6 (0.0-2.0) % Neut # (Auto) 5.4 (1.8-7.7) th/mm3 Lymph # (Auto) 1.1 (1.0-4.8) th/mm3 [place] # (Auto) 0.6 (0.0-0.9) th/mm3 Eos # (Auto) 0.3 (0.0-0.4) th/mm3 Baso # (Auto) 0.0 (0.0-0.2) th/mm3 WBC Differential . Differential Comment . Sodium 140 (136-145) meq/L Potassium 3.7 (3.5-5.1) meq/L Chloride 101 (98-107) meq/L Carbon Dioxide 30.1 (21.0-32.0) meq/L Anion Gap 9 (5-15) meq/L BUN 34 H (7-18) mg/dL Creatinine 1.60 H (0.50-1.00) mg/dL Estimated GFR 31 L (>89) mL/min Random Glucose 123 H (74-106) mg/dL Calcium 8.8 (8.5-10.1) mg/dL Total Bilirubin 0.4 (0.2-1.0) mg/dL AST 19 (15-37) U/L ALT 19 (10-53) U/L Alkaline Phosphatase 66 (45-117) U/L Troponin I Less than 0.02 L (0.02-0.05) ng/mL B-Natriuretic Peptide 328 H (0-100) pg/mL Total Protein 8.3 H (6.4-8.2) g/dL Albumin 3.8 (3.4-5.0) g/dL Imaging Data Attestation: I personally reviewed and interpreted this imaging study as follows : Radiologist's impression: Chest X-Ray 06/21/18 15:06 CONCLUSION: Bibasilar infiltrates and effusions ECG Data EKG Prior to Arrival: No Attestation: I personally reviewed and interpreted this ECG as follows: (EKG shows a sinus rhythm with a rate of 76. There is a lot of wonder making the EKG difficult to interpret. However, there does not appear to be any significant ST segment elevation or depression.) Discharge Plan Discharge Disposition Patient Disposition: 30 Still Patient Discharge Details Diagnosis: Congestive heart failure, Pleural effusion Physicians Team ED Provider: Lizett Willams Primary Care Provider: UNKNOWN, Rxs /Orders / Referrals /Forms Prescriptions: No Action carvedilol 25 mg Tablet 25 mg PO BID RF: 0 lovastatin 40 mg Tablet 40 mg PO QPM RF: 0 amlodipine 10 mg Tablet 10 mg PO DAILY RF: 0 furosemide [Lasix] 40 mg tablet 40 mg PO DAILY Qty: 30 RF: 0 Status ED Status: Pending Admission
--- NOTE | 2018-06-21 19:38 | P.HP ---
History of Present Illness Service: [facility] adult med Primary Care Physician: UNKNOWN Chief Complaint: JONES History of Present Illness: This is an 82-year-old female patient known to me from previous admissions with past medical history which includes hypertension, CAD status post PCI with DEMS to the RCA 2010 and LAD 2009, aortic regurgitation, pulmonary hypertension, peripheral vascular disease, chronic kidney disease stage IV, secondary hyperparathyroidism of renal origin who reports with worsening dyspnea on exertion over the last week. It is noted that she was admitted approximately 2- 1/2 weeks ago for apparent CHF exacerbation. She was given IV diuretics and discharged home after 1 day stay in the hospital. She said she initially felt better but the dyspnea on exertion returned and she was requiring 2-3 L supplemental oxygen at home which was new to her starting at her last hospital visit. She has been taking her medications as directed and has been avoiding high salt intake. She denies any recent chest pain but has had recurrent angina over the years per review of her outpatient cardiology notes last stress test appears to have been in May 2016 and revealed no fixed or reversible perfusion defects with an EF noted around 70% at that time. Her most recent echo was just done a few weeks ago on her hospital admission and revealed an EF of around 55%. See full report below of echo. She has been given IV diuretics here again and is diuresing well currently. She says that she feels relatively well while at rest but gets quite short of breath with exertion. Denies any wheezing or any productive cough. She denies any recent fevers. Denies hemoptysis or hematemesis. Patient denies nausea vomiting diarrhea constipation fevers chills weight gain lower extremity edema or chest pain. 06/02/18 Echo report: Mild concentric left ventricular hypertrophy. The left ventricular systolic function is normal with an estimated ejection fraction in the range of 55-60%. Mild to moderate mitral valve regurgitation. Aortic valve sclerosis is present. Mild to moderate aortic valve regurgitation. There is mild tricuspid valve regurgitation. The estimated pulmonary arterial pressure is 48 mmHg. SH No tobacco use in over 30 years but did smoke 1 pack/day for 30 years prior to that No alcohol or illicit drug use Lives alone Been a since 2006 - Diagnosis (1) Congestive heart failure (2) Hypoxia (3) GERD (gastroesophageal reflux disease) (4) CKD (chronic kidney disease) (5) HTN (hypertension) Review of Systems Constitutional: Reports fatigue Ears, Nose, Mouth, and Throat: Denies abnormal hearing, Denies bleeding gums, Denies bad breath, Denies change in voice, Denies dental pain, Denies difficulty swallowing, Denies dizziness, Denies dry mouth, Denies ear discharge , Denies ear pain, Denies facial pain, Denies headache(s), Denies hearing loss, Denies hoarseness, Denies lip swelling, Denies nosebleed, Denies mouth lesions, Denies mouth pain, Denies nasal congestion, Denies nasal discharge, Denies nasal obstruction, Denies nasal trauma, Denies neck lump, Denies neck pain, Denies nose pain, Denies pain with swallowing, Denies poor balance, Denies post nasal drip, Denies ringing in the ears, Denies sinus pain, Denies sinus pressure , Denies sore throat, Denies throat swelling, Denies tongue swelling, Denies other Cardiovascular: Reports leg pain with activity, Reports shortness of breath, Reports shortness of breath with activity, Denies chest pain, Denies chest pain at rest, Denies chest pain with activity, Denies excessive sweating, Denies fainting, Denies fast heart rate, Denies foot swelling, Denies generalized swelling, Denies irregular heart rhythm, Denies leg sores, Denies leg swelling, Denies lightheadedness, Denies radiating jaw, neck or arm pain, Denies rapid, pounding, or irregular heartbeat, Denies shortness of breath when lying down, Denies shortness of breath causing sudden awakening, Denies slow heart rate, Denies other Respiratory: Reports shortness of breath, Reports shortness of breath with activity, Denies change in phlegm color, Denies chest congestion, Denies cough, Denies coughing up blood, Denies excessive phlegm production, Denies pain on inspiration, Denies pain with cough, Denies snoring, Denies stridor, Denies wheezing, Denies other Gastrointestinal: Denies abdominal pain, Denies belching, Denies black, tarry stools, Denies bloating, Denies bright, red blood in stools, Denies change in bowel habits, Denies constant urge to pass stool, Denies change in stools, Denies coffee ground vomit, Denies constipation, Denies cramping, Denies difficulty swallowing, Denies excessive passing of gas, Denies feeling full early, Denies heartburn, Denies incontinent of stools, Denies loose stools, Denies nausea, Denies pain with swallowing, Denies vomiting, Denies vomiting blood, Denies other Musculoskeletal: Reports back pain Psychiatric: Denies abnormal sleep pattern, Denies anxiety, Denies behavioral changes, Denies change in appetite, Denies change in sex drive, Denies confusion , Denies depression, Denies difficulty concentrating, Denies hearing things others do not hear, Denies hopelessness, Denies irritability, Denies lack of enjoyment, Denies memory loss, Denies mood swings, Denies panic attacks, Denies paranoia, Denies seeing things others do not see, Denies sensing things others do not sense, Denies tactile hallucinations, Denies thoughts of hurting/killing others, Denies thoughts of hurting/killing yourself, Denies other PMFSH - History History Provided By: Patient - Medical History Medical History: Medical History (Last Updated 06/21/18 @ 19:34 by Raheel Cortez MD, PhD) GERD (gastroesophageal reflux disease) (Acute) HTN (hypertension) (Acute) CKD (chronic kidney disease) (Acute) Aortic regurgitation History of hysterectomy Peripheral vascular disease Secondary hyperparathyroidism (of renal origin) CHF (congestive heart failure) Myocardial infarct - Surgical History Surgical History: Surgical History (Last Updated 06/21/18 @ 19:29 by Raheel Cortez MD, PhD) History of appendectomy H/O heart artery stent - Family History Family History: Family History (Last Updated 06/21/18 @ 19:29 by Raheel Cortez MD, PhD) Other Family history non-contributory - Social History I have reviewed the patient's Social History: Yes - Tobacco History Second Hand Smoke Exposure: No Tobacco Use In Past 30 Days: No Smoking Status: Former smoker Tobacco Type: Cigarettes Number of Pack Years (if former smoker): 30 Smoking End Date: 1985 - Alcohol History How Often Do You Have a Drink Containing Alcohol: Never - Substance Use History Substance History: No History of Abuse - Travel History Recent Travel in the [place] Within the Last 8 Weeks: No Recent Travel Out of the Country Within the Last 8 Weeks: No - Immunization History Tetanus Immunization: <5 Years Medications and Allergies Active Medications: Active Medications Aspirin (Aspirin Chew) 81 mg PO DAILY NATAN Furosemide (Lasix Inj) 40 mg IV.PUSH BID@0900,1800 NATAN Last Admin: 06/21/18 17:37 Dose: 40 mg Potassium Chloride (Kcl) 10 meq PO BID NATAN Sodium Chloride (Ns Flush) 2 ml IV.FLUSH BID NAATN Sodium Chloride (Ns Flush) 2 ml IV.FLUSH UNSCH PRN PRN Reason: FLUSH AFTER USING IV ACCESS Allergies Allergy/AdvReac Type Severity Reaction Status Date / Time No Known Allergies Allergy Verified 06/21/18 14:51 Home Medications Medication Instructions Recorded Confirmed Type amlodipine 10 mg PO DAILY 06/01/18 06/21/18 History carvedilol 25 mg PO BID 06/01/18 06/21/18 History lovastatin 40 mg PO QPM 06/01/18 06/21/18 History Exam Vital signs: Vital Signs 06/21/18 14:50 06/21/18 14:54 06/21/18 15:06 Temperature 98.3 F Pulse Rate 89 Respiratory Rate 24 Blood Pressure 174/78 H Pulse Oximetry 84 L 94 L 93 L 06/21/18 15:51 06/21/18 16:00 06/21/18 16:22 Temperature Pulse Rate 84 73 Respiratory Rate 18 20 Blood Pressure 157/80 H 138/66 Pulse Oximetry 95 95 96 06/21/18 16:50 06/21/18 17:46 Temperature Pulse Rate 77 Respiratory Rate Blood Pressure Pulse Oximetry 92 L Intake & Output 06/21/18 06/21/18 06/22/18 06:59 18:59 06:59 Weight 57.1 kg Other: Weight On Admission 57.1 kg Narrative: GENERAL: NAD, a/o, remembers me from prior visits. SKIN: Warm and dry. HEAD: Atraumatic. Normocephalic. EYES: Pupils equal and round. No scleral icterus. No injection or drainage. ENT: No nasal bleeding or discharge. Mucous membranes pink and moist. NECK: Trachea midline. No JVD. CARDIOVASCULAR: Regular rate and rhythm. Distant heart sounds no significant murmur appreciated. RESPIRATORY: No accessory muscle use. Crackles throughout the lung [place]. No wheeze GASTROINTESTINAL: Abdomen soft, non-tender, nondistended. Hepatic and splenic margins not palpable. MUSCULOSKELETAL: Extremities without clubbing, cyanosis. Trace edema bilateral lower extremities. no obvious deformities. NEUROLOGICAL: Awake and alert. No obvious cranial nerve deficits. Motor grossly within normal limits. Five out of 5 muscle strength in the arms and legs. Normal speech. PSYCHIATRIC: Appropriate mood and affect; insight and judgment normal. Results - Labs CBC & Chem 7: 06/21/18 15:10 06/21/18 15:10 Labs: Laboratory Results - last 24 hr 06/21/18 06/21/18 06/21/18 15:10 15:10 15:10 CBC w Diff Auto diff final WBC 7.4 RBC 3.64 L Hgb 10.3 L Hct 31.9 L MCV 87.6 MCH 28.4 MCHC 32.4 RDW 13.7 Plt Count 344 D MPV 8.3 Neut % (Auto) 72.9 H Lymph % (Auto) 15.0 [place] % (Auto) 7.8 Eos % (Auto) 3.7 Baso % (Auto) 0.6 Neut # (Auto) 5.4 Lymph # (Auto) 1.1 [place] # (Auto) 0.6 Eos # (Auto) 0.3 Baso # (Auto) 0.0 WBC Differential . Differential Comment . Sodium 140 Potassium 3.7 Chloride 101 Carbon Dioxide 30.1 Anion Gap 9 BUN 34 H Creatinine 1.60 H Estimated GFR 31 L Random Glucose 123 H Calcium 8.8 Total Bilirubin 0.4 AST 19 ALT 19 Alkaline Phosphatase 66 Troponin I Less than 0.02 L B-Natriuretic Peptide 328 H Total Protein 8.3 H Albumin 3.8 - Imaging Impressions Chest X-Ray 06/21/18 15:06 CONCLUSION: Bibasilar infiltrates and effusions Caprini VTE Risk Assessment Caprini VTE Risk Assessment: Moderate/High Risk (score >= 2) Caprini Risk Assessment Model: Point Value = 1 Point Value = 2 Point Value = 3 Point Value = 5 Age 41-60 Minor surgery BMI > 25 kg/m2 Swollen legs Varicose veins or History of unexplained or recurrent spontaneous Oral contraceptives or hormone replacement Sepsis (< 1 month) Serious lung disease, including pneumonia (< 1 month) Abnormal pulmonary function Acute myocardial infarction Congestive heart failure (< 1 month) History of inflammatory bowel disease Medical patient at bed rest Age 61-74 Arthroscopic surgery Major open surgery (> 45 min) Laparoscopic surgery (> 45 min) Malignancy Confined to bed (> 72 hours) Immobilizing plaster cast Central venous access Age >= 75 History of VTE Family history of VTE Factor V Leiden Prothrombin [id number] Lupus anticoagulant Anticardiolipin antibodies Elevated serum homocysteine Heparin-induced thrombocytopenia Other congenital or acquired thrombophilia Stroke (< 1 month) Elective arthroplasty Hip, pelvis, or leg fracture Acute spinal cord injury (< 1 month) Prophylaxis Regimen: Total Risk Factor Score Risk Level Prophylaxis Regimen 0-1 Low Early ambulation 2 Moderate Order ONE of the following: *Sequential Compression Device (SCD) *Heparin 5000 units SQ BID 3-4 Higher Order ONE of the following medications: *Heparin 5000 units SQ TID *Enoxaparin/Lovenox 40 mg SQ daily (WT < 150 kg, CrCl > 30 mL/min) *Enoxaparin/Lovenox 30 mg SQ daily (WT < 150 kg, CrCl > 10-29 mL/min) *Enoxaparin/Lovenox 30 mg SQ BID (WT < 150 kg, CrCl > 30 mL/min) AND/OR *Sequential Compression Device (SCD) 5 or more Highest Order ONE of the following medications: *Heparin 5000 units SQ TID (Preferred with Epidurals) *Enoxaparin/Lovenox 40 mg SQ daily (WT < 150 kg, CrCl > 30 mL/min) *Enoxaparin/Lovenox 30 mg SQ daily (WT < 150 kg, CrCl > 10-29 mL/min) *Enoxaparin/Lovenox 30 mg SQ BID (WT < 150 kg, CrCl > 30 mL/min) AND *Sequential Compression Device (SCD) Assessment and Plan - Assessment (1) Congestive heart failure Code(s): I50.9 - Heart failure, unspecified Status: Acute Plan: Appears to be acute exacerbation on chronic CHF most likely diastolic dysfunction given her normal EF. She does have some mild to moderate aortic regurgitation and mild pulmonary hypertension based on recent echo. We will have cardiology see the patient given that this is a recurrent exacerbation despite medication modification. (2) Hypoxia Code(s): R09.02 - Hypoxemia Status: Acute Plan: We will continue supplemental oxygen and diuresis. We will try DuoNeb and 1 dose of steroid as well. Her last pulmonary function test was done in 2011 and was borderline but did not show significant obstruction at the time. (3) GERD (gastroesophageal reflux disease) Code(s): K21.9 - Gastro-esophageal reflux disease without esophagitis Status: Acute Plan: Provide PPI. (4) CKD (chronic kidney disease) Code(s): N18.9 - Chronic kidney disease, unspecified Status: Acute Plan: Her creatinine is actually improved from her outpatient baseline which is usually around 1.9. Follow labs in intake/output. (5) HTN (hypertension) Code(s): I10 - Essential (primary) hypertension Status: Acute Plan: Resume medication as blood pressure allows. - Plan Code Status: full Discussed Condition With: Patient and ER provider (1) Congestive heart failure Qualifiers: Heart failure type: unspecified Heart failure chronicity: acute on chronic Qualified Code(s): I50.9 - Heart failure, unspecified (4) CKD (chronic kidney disease) Qualifiers: Chronic kidney disease stage: stage 4 (severe) Qualified Code(s): N18.4 - Chronic kidney disease, stage 4 (severe) (5) HTN (hypertension) Qualifiers: Hypertension type: essential hypertension Qualified Code(s): I10 - Essential (primary) hypertension
[2018-06-21] MEDS ORDERED: MethylPREDNISolone Sod Succinate Inj 40 MG/ML Vial IV.PUSH ONE (20:00)
[2018-06-21] MEDS ORDERED: Potassium Chloride 10 MEQ ER Capsule PO SCH (21:00)
[2018-06-22 05:21] LABS: Potassium 4.4 meq/L (3.5-5.1)
[2018-06-22 05:25] LABS: Calcium 8.6 mg/dL (8.5-10.1); Carbon Dioxide 31.1 meq/L (21.0-32.0)
--- NOTE | 2018-06-22 06:03 | XR ---
EXAM DATE: 06/22/2018 5:07 AM EST AGE/SEX: 82 years / Female INDICATIONS: Shortness of breath. CLINICAL DATA: This is the patient's subsequent encounter. Patient reports that signs and symptoms h ave been present for 2 days and indicates a pain score of 0/10. MEDICAL/SURGICAL HISTORY: Chronic obstructive pulmonary disease. Congestive heart failure. Non e. COMPARISON: [facility], CHEST 1V SINGLE AP, 06/21/2018. . FINDINGS: Cardiomegaly. Mild edema pattern with bilateral effusions and basilar airspace disease. No significan t change since prior examination. CONCLUSION: Mild congestive heart failure with small bilateral pleural effusions. Findings similar to prior exam. Electronically signed by: Rafy Enriquez MD 06/22/2018 6:01 AM EST
--- NOTE | 2018-06-22 06:50 | P.PN ---
Subjective Interval history: Patient slept relatively well. Says that her breathing feels fine at rest but she has not been exerting herself overnight so she is not sure if it is much better or not overall. She has diuresed relatively well. Physical Exam Vital signs: Vital Signs 06/21/18 14:50 06/21/18 14:54 06/21/18 15:06 Temperature 98.3 F Pulse Rate 89 Respiratory Rate 24 Blood Pressure 174/78 H Pulse Oximetry 84 L 94 L 93 L 06/21/18 15:51 06/21/18 16:00 06/21/18 16:22 Temperature Pulse Rate 84 73 Respiratory Rate 18 20 Blood Pressure 157/80 H 138/66 Pulse Oximetry 95 95 96 06/21/18 16:50 06/21/18 17:46 06/21/18 19:30 Temperature Pulse Rate 77 Respiratory Rate Blood Pressure Pulse Oximetry 92 L 94 L 06/21/18 20:00 06/21/18 20:02 06/22/18 00:00 Temperature 97.6 F 97.2 F L Pulse Rate 75 79 84 Respiratory Rate 19 18 Blood Pressure 140/65 145/62 H Pulse Oximetry 95 94 L 06/22/18 00:40 06/22/18 02:11 06/22/18 04:00 Temperature 96.8 F L Pulse Rate 79 79 Respiratory Rate 18 18 Blood Pressure 143/63 H Pulse Oximetry 96 06/22/18 04:57 Temperature Pulse Rate 73 Respiratory Rate Blood Pressure Pulse Oximetry Intake & Output 06/21/18 06/21/18 06/22/18 06:59 18:59 06:59 Intake Total 120 / 120 Output Total 2275 / 2275 Balance -2155 / -2155 Weight 57.1 kg 57.1 kg Intake: Oral 120 / 120 Output: Urine 1400 / 1400 Urine Amount (Catheter) 875 / 875 Indwelling Urethral Catheter 875 / 875 Other: Date of Last Bowel Movement 06/20/18 06/19/18 Weight On Admission 57.1 kg Narrative: GENERAL: Sleeping soundly, arouses to voice. NAD, a/o. SKIN: Warm and dry. HEAD: Atraumatic. Normocephalic. EYES: Pupils equal and round. No scleral icterus. No injection or drainage. ENT: No nasal bleeding or discharge. Mucous membranes pink and moist. NECK: Trachea midline. No JVD. CARDIOVASCULAR: Regular rate and rhythm. Distant heart sounds no significant murmur appreciated. RESPIRATORY: No accessory muscle use. Crackles throughout the lung [place] but decreased from yesterday's exam. Occasional expiratory wheeze noted. GASTROINTESTINAL: Abdomen soft, non-tender, nondistended. Bowel sounds normal. MUSCULOSKELETAL: Extremities without clubbing, cyanosis. Trace edema bilateral lower extremities. no obvious deformities. NEUROLOGICAL: Awake and alert. No obvious cranial nerve deficits. Motor grossly within normal limits. Five out of 5 muscle strength in the arms and legs. Normal speech. PSYCHIATRIC: Appropriate mood and affect; insight and judgment normal. - Urinary Catheter Management Indwelling Urethral Catheter Cath placed during this visit: yes Reason for continuing: Hourly intake/output Insertion date: 06/21/18 Insertion time: 16:00 Results - Labs CBC & Chem 7: 06/21/18 15:10 06/22/18 04:45 Laboratory Results - last 24 hr 06/21/18 06/21/18 06/21/18 15:10 15:10 15:10 CBC w Diff Auto diff final WBC 7.4 RBC 3.64 L Hgb 10.3 L Hct 31.9 L MCV 87.6 MCH 28.4 MCHC 32.4 RDW 13.7 Plt Count 344 D MPV 8.3 Neut % (Auto) 72.9 H Lymph % (Auto) 15.0 [place] % (Auto) 7.8 Eos % (Auto) 3.7 Baso % (Auto) 0.6 Neut # (Auto) 5.4 Lymph # (Auto) 1.1 [place] # (Auto) 0.6 Eos # (Auto) 0.3 Baso # (Auto) 0.0 WBC Differential . Differential Comment . Sodium 140 Potassium 3.7 Chloride 101 Carbon Dioxide 30.1 Anion Gap 9 BUN 34 H Creatinine 1.60 H Estimated GFR 31 L Random Glucose 123 H Calcium 8.8 Total Bilirubin 0.4 AST 19 ALT 19 Alkaline Phosphatase 66 Troponin I Less than 0.02 L B-Natriuretic Peptide 328 H Total Protein 8.3 H Albumin 3.8 06/22/18 04:45 CBC w Diff WBC RBC Hgb Hct MCV MCH MCHC RDW Plt Count MPV Neut % (Auto) Lymph % (Auto) [place] % (Auto) Eos % (Auto) Baso % (Auto) Neut # (Auto) Lymph # (Auto) [place] # (Auto) Eos # (Auto) Baso # (Auto) WBC Differential Differential Comment Sodium 141 Potassium 4.4 Chloride 103 Carbon Dioxide 31.1 Anion Gap 7 BUN 34 H Creatinine 1.60 H Estimated GFR 31 L Random Glucose 141 H Calcium 8.6 Total Bilirubin AST ALT Alkaline Phosphatase Troponin I B-Natriuretic Peptide Total Protein Albumin - Imaging Impressions Chest X-Ray 06/21/18 15:06 CONCLUSION: Bibasilar infiltrates and effusions Chest X-Ray 06/22/18 00:00 CONCLUSION: Mild congestive heart failure with small bilateral pleural effusions. Findings similar to prior exam. Assessment and Plan - Assessment (1) Congestive heart failure Code(s): I50.9 - Heart failure, unspecified Status: Acute Plan: Appears to be acute exacerbation on chronic CHF most likely diastolic dysfunction given her normal EF. She does have some mild to moderate aortic regurgitation and mild pulmonary hypertension based on recent echo. We will have cardiology see the patient given that this is a recurrent exacerbation despite medication modification. Chest x-ray similar to yesterday's image but lung sounds somewhat improved this morning. We will have physical therapy see her later today to see how she does with oxygenation under exertion. (2) Hypoxia Code(s): R09.02 - Hypoxemia Status: Acute Plan: We will continue supplemental oxygen and diuresis. We will try DuoNeb and 1 dose of steroid as well. Her last pulmonary function test was done in 2011 and was borderline but did not show significant obstruction at the time. (3) GERD (gastroesophageal reflux disease) Code(s): K21.9 - Gastro-esophageal reflux disease without esophagitis Status: Acute Plan: Provide PPI. (4) CKD (chronic kidney disease) Code(s): N18.9 - Chronic kidney disease, unspecified Status: Acute Plan: Her creatinine is actually improved from her outpatient baseline which is usually around 1.9. Follow labs in intake/output. She has diuresed well and creatinine remained stable overnight. (5) HTN (hypertension) Code(s): I10 - Essential (primary) hypertension Status: Acute Plan: Resume medication as blood pressure allows. - Plan Code Status: full Discharge Planning: We will have cardiology see the patient. Possible discharge home later today or tomorrow depending on their recommendations. (1) Congestive heart failure Qualifiers: Heart failure type: unspecified Heart failure chronicity: acute on chronic Qualified Code(s): I50.9 - Heart failure, unspecified (4) CKD (chronic kidney disease) Qualifiers: Chronic kidney disease stage: stage 4 (severe) Qualified Code(s): N18.4 - Chronic kidney disease, stage 4 (severe) (5) HTN (hypertension) Qualifiers: Hypertension type: essential hypertension Qualified Code(s): I10 - Essential (primary) hypertension
--- NOTE | 2018-06-22 07:54 | P.CONCA ---
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 The patient had an admission earlier this month with progressive shortness of breath and orthopnea. She is found to have pulmonary edema, given IV Lasix and was discharged the next day with improvement in shortness of breath. She was transitioned back to oral Lasix at home as well as supplemental oxygen, however since discharge reports that shortness of breath and orthopnea have worsened again. She presented back to the hospital yesterday and chest x-ray continues to show pulmonary edema with small bilateral pleural effusions, R>L. An echocardiogram done on admission earlier this month showed EF 55%, mild to moderate AI and MR. She does report occasional left anterior chest discomfort and left jaw discomfort, although not always at the same time. She reports symptoms occur about once a month and lasts for a few minutes. Review of Systems All other systems reviewed negative except as stated in HPI PMFSH - History History Provided By: Patient, Medical Record - Medical History Medical History: Medical History (Last Reviewed 06/22/18 @ 07:09 by Dick Carrington) GERD (gastroesophageal reflux disease) (Acute) HTN (hypertension) (Acute) CKD (chronic kidney disease) (Acute) Aortic regurgitation History of hysterectomy Peripheral vascular disease Secondary hyperparathyroidism (of renal origin) CHF (congestive heart failure) Myocardial infarct - Surgical History Surgical History: Surgical History (Last Reviewed 06/22/18 @ 07:09 by Dick Carrington) History of appendectomy H/O heart artery stent - Family History Family History: Family History (Last Updated 06/21/18 @ 19:29 by Raheel Cortez MD, PhD) Other Family history non-contributory - Tobacco History Second Hand Smoke Exposure: No Tobacco Use In Past 30 Days: No Smoking Status: Former smoker Tobacco Type: Cigarettes Number of Pack Years (if former smoker): 30 Smoking End Date: 1985 - Alcohol History How Often Do You Have a Drink Containing Alcohol: Never - Substance Use History Substance History: No History of Abuse - Travel History Recent Travel in the [place] Within the Last 8 Weeks: No Recent Travel Out of the Country Within the Last 8 Weeks: No - Immunization History Tetanus Immunization: <5 Years Medications and Allergies Allergies Allergy/AdvReac Type Severity Reaction Status Date / Time No Known Allergies Allergy Verified 06/21/18 14:51 Home Medications Medication Instructions Recorded Confirmed Type amlodipine 10 mg PO DAILY 06/01/18 06/21/18 History carvedilol 25 mg PO BID 06/01/18 06/21/18 History lovastatin 40 mg PO QPM 06/01/18 06/21/18 History Active Medications: Active Medications Albuterol (Duoneb Neb (Prn)) 1 ampul NEB Q4HR NEB PRN PRN Reason: wheeze, sob Aspirin (Aspirin Chew) 81 mg PO DAILY [facility] Carvedilol (Coreg) 12.5 mg PO BID NATAN Furosemide (Lasix Inj) 40 mg IV.PUSH BID@0900,1800 [facility] Last Admin: 06/21/18 17:37 Dose: 40 mg Pantoprazole Sodium (Protonix) 40 mg PO DAILY [facility] Potassium Chloride (Kcl) 10 meq PO BID [facility] Last Admin: 06/21/18 21:00 Dose: 10 meq Pravastatin Sodium (Pravachol) 40 mg PO QPM [facility] Sodium Chloride (Ns Flush) 2 ml IV.FLUSH BID [facility] Last Admin: 06/21/18 21:00 Dose: 2 ml Sodium Chloride (Ns Flush) 2 ml IV.FLUSH UNSCH PRN PRN Reason: FLUSH AFTER USING IV ACCESS Exam Vital signs: Vital Signs 06/21/18 14:50 06/21/18 14:54 06/21/18 15:06 Temperature 98.3 F Pulse Rate 89 Respiratory Rate 24 Blood Pressure 174/78 H Pulse Oximetry 84 L 94 L 93 L 06/21/18 15:51 06/21/18 16:00 06/21/18 16:22 Temperature Pulse Rate 84 73 Respiratory Rate 18 20 Blood Pressure 157/80 H 138/66 Pulse Oximetry 95 95 96 06/21/18 16:50 06/21/18 17:46 06/21/18 19:30 Temperature Pulse Rate 77 Respiratory Rate Blood Pressure Pulse Oximetry 92 L 94 L 06/21/18 20:00 06/21/18 20:02 06/22/18 00:00 Temperature 97.6 F 97.2 F L Pulse Rate 75 79 84 Respiratory Rate 19 18 Blood Pressure 140/65 145/62 H Pulse Oximetry 95 94 L 06/22/18 00:40 06/22/18 02:11 06/22/18 04:00 Temperature 96.8 F L Pulse Rate 79 79 Respiratory Rate 18 18 Blood Pressure 143/63 H Pulse Oximetry 96 06/22/18 04:57 Temperature Pulse Rate 73 Respiratory Rate Blood Pressure Pulse Oximetry Intake & Output 06/21/18 06/22/18 06/22/18 18:59 06:59 18:59 Intake Total 120 / 120 Output Total 2275 / 2275 Balance -2155 / -2155 Weight 125 lb 14.143 oz 125 lb 14.143 oz Intake: Oral 120 / 120 Output: Urine 1400 / 1400 Urine Amount (Catheter) 875 / 875 Indwelling Urethral Catheter 875 / 875 Other: Date of Last Bowel Movement 06/20/18 06/19/18 Weight On Admission 125 lb 14.143 oz Narrative: GENERAL: Well-developed well-nourished. In no acute distress. NECK: No carotid bruits. No JVD. CARDIOVASCULAR: Regular rate and rhythm. 2/6 systolic murmur appreciated. RESPIRATORY: No accessory muscle use. Clear to auscultation. Bibasilar crackles noted. MUSCULOSKELETAL: No clubbing or cyanosis. No edema. NEUROLOGICAL: Awake and alert. Normal speech. Results 06/21/18 15:10 06/22/18 04:45 Cardiac Enzymes 06/21/18 06/21/18 Range/Units 15:10 15:10 AST 19 (15-37) U/L Troponin I Less than 0.02 L (0.02-0.05) ng/mL B-Natriuretic Peptide 328 H (0-100) pg/mL Coagulation 06/21/18 Range/Units 15:10 B-Natriuretic Peptide 328 H (0-100) pg/mL CBC 06/21/18 Range/Units 15:10 WBC 7.4 (4.0-11.0) th/mm3 RBC 3.64 L (4.00-5.30) mil/mm3 Hgb 10.3 L (11.6-15.3) gm/dL Hct 31.9 L (35.0-46.0) % Plt Count 344 D (150-450) th/mm3 Neut # (Auto) 5.4 (1.8-7.7) th/mm3 Lymph # (Auto) 1.1 (1.0-4.8) th/mm3 [place] # (Auto) 0.6 (0.0-0.9) th/mm3 Eos # (Auto) 0.3 (0.0-0.4) th/mm3 Baso # (Auto) 0.0 (0.0-0.2) th/mm3 Comprehensive Metabolic Panel 06/21/18 06/22/18 Range/Units 15:10 04:45 Sodium 140 141 (136-145) meq/L Potassium 3.7 4.4 (3.5-5.1) meq/L Chloride 101 103 (98-107) meq/L Carbon Dioxide 30.1 31.1 (21.0-32.0) meq/L BUN 34 H 34 H (7-18) mg/dL Creatinine 1.60 H 1.60 H (0.50-1.00) mg/dL Calcium 8.8 8.6 (8.5-10.1) mg/dL AST 19 (15-37) U/L ALT 19 (10-53) U/L Alkaline Phosphatase 66 (45-117) U/L Total Protein 8.3 H (6.4-8.2) g/dL Albumin 3.8 (3.4-5.0) g/dL Intake and Output 06/21/18 06/22/18 06/22/18 22:59 06:59 14:59 Intake Total 120 / 120 Output Total 875 / 875 1400 / 1400 Balance -875 / -875 -1280 / -1280 Intake: Oral 120 / 120 Output: Urine 1400 / 1400 Urine Amount (Catheter) 875 / 875 Indwelling Urethral Catheter 875 / 875 Other: Date of Last Bowel Movement 06/19/18 Weight 125 lb 14.143 oz 125 lb 14.143 oz Weight On Admission 125 lb 14.143 oz - Imaging and Cardiology Imaging: Impressions Chest X-Ray 06/21/18 15:06 CONCLUSION: Bibasilar infiltrates and effusions Chest X-Ray 06/22/18 00:00 CONCLUSION: Mild congestive heart failure with small bilateral pleural effusions. Findings similar to prior exam. 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 Acute exacerbation of diastolic CHF: Improving with IV diuresis, would likely benefit from continued IV diuresis until creatinine bumps and then transition back to oral Lasix as outpatient. Monitor strict I's and O's, electrolytes, and renal function. Atypical chest pain: Consider outpatient Lexiscan. Continue aspirin and statin. Discussed Condition With: Patient, Dr. Herrera - Attending Attestation agree with above discussed case continue diuresis mod valve dz normal ef may consider SPECT, but atypical symptoms, inpt vs outpatient stress
[2018-06-22] MEDS: Carvedilol 12.5 MG Tablet PO SCH ×2 (08:43→20:52)
--- NOTE | 2018-06-22 12:34 | ECG ---
Date Performed: 06/21/2018 Time Performed: 14:54:18 PTAGE: 82 years EKG: Sinus rhythm NONSPECIFIC ST & T-WAVE ABNORMALITY BORDERLINE ECG INTERPRETATION BASED ON A DEFAULT AGE OF 40 YEARS PREVIOUS TRACING : 06/01/2018 09.52 DOCTOR: Jason Herrera Interpretating Date/Time 06/22/2018 12:33:32
[2018-06-22] MEDS ORDERED: Polyethylene Glycol 3350 17 GM Packet PO ONE (21:00)
[2018-06-23] MEDS ORDERED: Senna/Docusate Sodium 8.6/50 MG Tablet PO SCH ×2 (02:30→09:00)
--- NOTE | 2018-06-23 06:22 | P.PN ---
Subjective Interval history: Overall her breathing is much improved she reports. Her biggest complaint is that she had not had a bowel movement in a couple of days. She has been passing flatus. She has had decreased p.o. intake before her hospitalization. Her appetite improved yesterday. Physical Exam Vital signs: Vital Signs 06/22/18 08:00 06/22/18 12:00 06/22/18 16:00 Temperature 96.3 F L 97.0 F L 98.8 F Pulse Rate 82 78 74 Respiratory Rate 20 21 20 Blood Pressure 153/68 H 121/51 L 135/63 Pulse Oximetry 96 94 L 95 06/22/18 19:40 06/22/18 20:00 06/23/18 00:00 Temperature 97.6 F 96.8 F L Pulse Rate 73 66 Respiratory Rate 18 18 Blood Pressure 137/60 129/62 Pulse Oximetry 98 96 99 06/23/18 04:00 Temperature 96.2 F L Pulse Rate 59 L Respiratory Rate 18 Blood Pressure 144/66 H Pulse Oximetry 99 Intake & Output 06/22/18 06/22/18 06/23/18 06:59 18:59 06:59 Intake Total 120 / 120 360 / 360 Output Total 2275 / 2275 1500 / 1500 Balance -2155 / -2155 -1140 / -1140 Weight 57.1 kg 53.8 kg Intake: Oral 120 / 120 360 / 360 Output: Urine 1400 / 1400 850 / 850 Urine Amount (Catheter) 875 / 875 650 / 650 Indwelling Urethral Catheter 875 / 875 650 / 650 Other: Date of Last Bowel Movement 06/19/18 06/19/18 Narrative: GENERAL: Awake and alert, no acute distress, cooperative with exam. SKIN: Warm and dry. HEAD: Normocephalic. EYES: No scleral icterus. No injection or drainage. NECK: Supple, trachea midline. No JVD or lymphadenopathy. CARDIOVASCULAR: Regular rate and rhythm without murmurs, gallops, or rubs. RESPIRATORY: Breath sounds equal bilaterally. No accessory muscle use. Few scattered crackles in bases but much improved from previous exams. GASTROINTESTINAL: Abdomen soft, non-tender, nondistended. Bowel sounds normal. MUSCULOSKELETAL: No cyanosis, or edema. Moves all extremities well. BACK: Nontender without obvious deformity. No CVA tenderness. - Urinary Catheter Management Indwelling Urethral Catheter Cath placed during this visit: yes Reason for continuing: Hourly intake/output Insertion date: 06/21/18 Insertion time: 16:00 Results - Labs CBC & Chem 7: 06/21/18 15:10 06/22/18 04:45 Assessment and Plan - Assessment (1) Congestive heart failure Code(s): I50.9 - Heart failure, unspecified Status: Acute Plan: Appears to be acute exacerbation on chronic CHF most likely diastolic dysfunction given her normal EF. She does have some mild to moderate aortic regurgitation and mild pulmonary hypertension based on recent echo. Appreciate cardiology input. Respiratory status significantly clinically improved. Will convert to oral diuretic (2) Hypoxia Code(s): R09.02 - Hypoxemia Status: Acute Plan: We will continue supplemental oxygen and diuresis. We will try DuoNeb and 1 dose of steroid as well. Pulmonary function testing performed here reveals likely at least moderate obstructive defect. It is noted that some of the trials were not reproducible and overall quality of the test is somewhat questionable. I will provide her a Ventolin inhaler and instructions on how to use this. (3) GERD (gastroesophageal reflux disease) Code(s): K21.9 - Gastro-esophageal reflux disease without esophagitis Status: Acute Plan: Provide PPI. (4) CKD (chronic kidney disease) Code(s): N18.9 - Chronic kidney disease, unspecified Status: Acute Plan: Her creatinine is actually improved from her outpatient baseline which is usually around 1.9. Follow labs in intake/output. She has diuresed well and a.m. labs are pending. (5) HTN (hypertension) Code(s): I10 - Essential (primary) hypertension Status: Acute Plan: Resume medication as blood pressure allows. - Plan Discharge Planning: Hopefully discharge home with home health today. (1) Congestive heart failure Qualifiers: Heart failure type: unspecified Heart failure chronicity: acute on chronic Qualified Code(s): I50.9 - Heart failure, unspecified (4) CKD (chronic kidney disease) Qualifiers: Chronic kidney disease stage: stage 4 (severe) Qualified Code(s): N18.4 - Chronic kidney disease, stage 4 (severe) (5) HTN (hypertension) Qualifiers: Hypertension type: essential hypertension Qualified Code(s): I10 - Essential (primary) hypertension
--- NOTE | 2018-06-23 06:34 | P.DCO ---
- Diagnosis (1) Acute exacerbation of CHF (congestive heart failure) Status: Acute (2) Hypoxia Status: Acute (3) HTN (hypertension) Status: Chronic - Physical Therapy Order: Evaluate and treat, Improve ambulation - Home Health Nursing Order: Medical education, CHF education, Oxygen administration education - Home Health Aide Order: To assist in: professional programmer analyst and meal prep - Case Management Consult Case Management Consult-Home Health: Yes - Certification I have seen patient Isabel Marino on 06/23/18. My clinical findings support the need for the requested home health care services because: Limited mobility due to disease progression, Patient has SOB, Deconditioned with increased weakness, High risk of falls I certify that my clinical findings support that this patient is homebound because: Hx COPD - exertion dyspnea/weakness (obtain BMP on 06/25 or 06/26/18), Unsafe to leave home unassisted, Poor cardiac reserve (1) Acute exacerbation of CHF (congestive heart failure) Qualifiers: Heart failure type: diastolic Qualified Code(s): I50.33 - Acute on chronic diastolic (congestive) heart failure (3) HTN (hypertension) Qualifiers: Hypertension type: essential hypertension Qualified Code(s): I10 - Essential (primary) hypertension
--- NOTE | 2018-06-23 06:37 | P.DS ---
Date of admission: 06/21/18 15:51 Primary care physician: UNKNOWN Anticipated date of discharge: 06/23/18 Brief History from admission: This is an 82-year-old female patient known to me from previous admissions with past medical history which includes hypertension, CAD status post PCI with DEMS to the RCA 2010 and LAD 2009, aortic regurgitation, pulmonary hypertension, peripheral vascular disease, chronic kidney disease stage IV, secondary hyperparathyroidism of renal origin who reports with worsening dyspnea on exertion over the last week. It is noted that she was admitted approximately 2- 1/2 weeks ago for apparent CHF exacerbation. She was given IV diuretics and discharged home after 1 day stay in the hospital. She said she initially felt better but the dyspnea on exertion returned and she was requiring 2-3 L supplemental oxygen at home which was new to her starting at her last hospital visit. She has been taking her medications as directed and has been avoiding high salt intake. She denies any recent chest pain but has had recurrent angina over the years per review of her outpatient cardiology notes last stress test appears to have been in May 2016 and revealed no fixed or reversible perfusion defects with an EF noted around 70% at that time. Her most recent echo was just done a few weeks ago on her hospital admission and revealed an EF of around 55%. See full report below of echo. She has been given IV diuretics here again and is diuresing well currently. She says that she feels relatively well while at rest but gets quite short of breath with exertion. Denies any wheezing or any productive cough. She denies any recent fevers. Denies hemoptysis or hematemesis. Patient denies nausea vomiting diarrhea constipation fevers chills weight gain lower extremity edema or chest pain. 06/02/18 Echo report: Mild concentric left ventricular hypertrophy. The left ventricular systolic function is normal with an estimated ejection fraction in the range of 55-60%. Mild to moderate mitral valve regurgitation. Aortic valve sclerosis is present. Mild to moderate aortic valve regurgitation. There is mild tricuspid valve regurgitation. The estimated pulmonary arterial pressure is 48 mmHg. SH No tobacco use in over 30 years but did smoke 1 pack/day for 30 years prior to that No alcohol or illicit drug use Lives alone Been a since 2006 DS: Diagnosis - Discharge Diagnosis (1) Acute exacerbation of CHF (congestive heart failure) Status: Acute (2) Hypoxia Status: Acute (3) HTN (hypertension) Status: Chronic (4) GERD (gastroesophageal reflux disease) Status: Chronic (5) CKD (chronic kidney disease) Status: Chronic (6) Congestive heart failure Status: Chronic DS: Medications - Discharge Medications Prescriptions: albuterol sulfate [Ventolin HFA] 2 puff INH Q6H PRN #1 inhaler PRN Reason: Shortness Of Breath carvedilol [Coreg] 12.5 mg PO BID #60 tab furosemide 40 mg PO BID@0900,1800 #60 tab potassium chloride [Klor-Con 10] 10 meq PO BID #60 tab sennosides-docusate sodium [Senna Plus] 1 tab PO BID #30 tab DS: Summary Hospital Course: Patient admitted for hypoxia and apparent recurrent diastolic heart failure. She responded well to IV diuretics. Her home Lasix dosing was increased to 40 mg p.o. twice daily. Supplemental potassium was added at 10 mEq twice daily. She was evaluated by cardiology in-house well. Recent echo was reviewed from hospitalization approximately 3 weeks ago. She may benefit from outpatient Lexiscan stress test per cardiology notes. She will follow-up with them in 1-2 weeks. Her respiratory status improved significantly with diuresis. Respiratory did perform pulmonary function test at bedside. Trials were somewhat non-reproducible however on the 2 most reproducible trials she did appear to have significant at least moderate obstructive defect. I have added Ventolin inhaler. She may need more inhalers as an outpatient if this continues to be an issue. Her dyspnea is therefore likely multifactorial. - Time Spent with Patient Total time spent providing and/or coordinating discharge services: Less than 30 minutes - Quality: VTE Deep Vein Thrombosis/Pulmonary Embolism Present on Admission: No Exam Vital signs: Vital Signs 06/22/18 08:00 06/22/18 12:00 06/22/18 16:00 Temperature 96.3 F L 97.0 F L 98.8 F Pulse Rate 82 78 74 Respiratory Rate 20 21 20 Blood Pressure 153/68 H 121/51 L 135/63 Pulse Oximetry 96 94 L 95 06/22/18 19:40 06/22/18 20:00 06/23/18 00:00 Temperature 97.6 F 96.8 F L Pulse Rate 73 66 Respiratory Rate 18 18 Blood Pressure 137/60 129/62 Pulse Oximetry 98 96 99 06/23/18 04:00 Temperature 96.2 F L Pulse Rate 59 L Respiratory Rate 18 Blood Pressure 144/66 H Pulse Oximetry 99 Intake & Output 06/22/18 06/22/18 06/23/18 06:59 18:59 06:59 Intake Total 120 / 120 360 / 360 Output Total 2275 / 2275 1500 / 1500 Balance -2155 / -2155 -1140 / -1140 Weight 57.1 kg 53.8 kg Intake: Oral 120 / 120 360 / 360 Output: Urine 1400 / 1400 850 / 850 Urine Amount (Catheter) 875 / 875 650 / 650 Indwelling Urethral Catheter 875 / 875 650 / 650 Other: Date of Last Bowel Movement 06/19/18 06/19/18 Results Procedures completed during hospitalization: none - Impressions ITS Impressions Chest X-Ray 06/22/18 00:00 CONCLUSION: Mild congestive heart failure with small bilateral pleural effusions. Findings similar to prior exam. Discharge Plan - Discharge Disposition Patient Disposition: /Home Health Service - Discharge Condition Condition: Stable - Discharge Order Discharge Orders: Discharge Order (Routine); Ordered 06/23/18 Ordered By: Raheel Cortez - Discharge Details Anticipated Discharge Date: 06/23/18 Discharge Comment: ventolin teaching prior to d/c - Physicians Team Primary Care Provider: UNKNOWN, Attending Provider: Raheel Cortez Other Providers: Jason Herrera MD
--- NOTE | 2018-06-23 07:48 | P.PNCA ---
Subjective Interval history: Patient reports her breathing is back to normal. She reports continued short episodes of chest discomfort. Reports she is being discharged today. Labs today are pending. Medications and Allergies Active Medications: Active Medications Albuterol (Duoneb Neb (Prn)) 1 ampul NEB Q4HR NEB PRN PRN Reason: wheeze, sob Albuterol (Ventolin Hfa Inh) 2 puff INH Q6H PRN PRN Reason: SHORTNESS OF BREATH Aspirin (Aspirin Chew) 81 mg PO DAILY [facility] Last Admin: 06/22/18 08:43 Dose: 81 mg Carvedilol (Coreg) 12.5 mg PO BID [facility] Last Admin: 06/22/18 20:52 Dose: 12.5 mg Furosemide (Lasix) 40 mg PO BID@0900,1800 [facility] Pantoprazole Sodium (Protonix) 40 mg PO DAILY [facility] Last Admin: 06/22/18 08:44 Dose: 40 mg Potassium Chloride (Klor-Con 10) 10 meq PO BID [facility] Last Admin: 06/22/18 20:52 Dose: 10 meq Pravastatin Sodium (Pravachol) 40 mg PO QPM [facility] Last Admin: 06/22/18 18:37 Dose: 40 mg Senna/Docusate Sodium (Loyda-Colace) 1 tab PO BID [facility] Sodium Chloride (Ns Flush) 2 ml IV.FLUSH BID [facility] Last Admin: 06/22/18 20:53 Dose: 2 ml Sodium Chloride (Ns Flush) 2 ml IV.FLUSH UNSCH PRN PRN Reason: FLUSH AFTER USING IV ACCESS Allergies Allergy/AdvReac Type Severity Reaction Status Date / Time No Known Allergies Allergy Verified 06/21/18 14:51 Home Medications Medication Instructions Recorded Confirmed Type amlodipine 10 mg PO DAILY 06/01/18 06/21/18 History carvedilol 25 mg PO BID 06/01/18 06/21/18 History lovastatin 40 mg PO QPM 06/01/18 06/21/18 History Physical Exam Vital signs: Vital Signs 06/22/18 08:00 06/22/18 12:00 06/22/18 16:00 Temperature 96.3 F L 97.0 F L 98.8 F Pulse Rate 82 78 74 Respiratory Rate 20 21 20 Blood Pressure 153/68 H 121/51 L 135/63 Pulse Oximetry 96 94 L 95 06/22/18 19:40 06/22/18 20:00 06/23/18 00:00 Temperature 97.6 F 96.8 F L Pulse Rate 73 66 Respiratory Rate 18 18 Blood Pressure 137/60 129/62 Pulse Oximetry 98 96 99 06/23/18 04:00 06/23/18 07:42 Temperature 96.2 F L Pulse Rate 59 L Respiratory Rate 18 Blood Pressure 144/66 H Pulse Oximetry 99 99 Intake & Output 06/22/18 06/23/18 06/23/18 18:59 06:59 18:59 Intake Total 360 / 360 Output Total 1500 / 1500 Balance -1140 / -1140 Weight 118 lb 9.739 oz Intake: Oral 360 / 360 Output: Urine 850 / 850 Urine Amount (Catheter) 650 / 650 Indwelling Urethral Catheter 650 / 650 Other: Date of Last Bowel Movement 06/19/18 Narrative: GENERAL: Well-developed well-nourished. In no acute distress. NECK: No carotid bruits. No JVD. CARDIOVASCULAR: Regular rate and rhythm. No murmur appreciated. RESPIRATORY: No accessory muscle use. Clear to auscultation. Breath sounds equal bilaterally. MUSCULOSKELETAL: No clubbing or cyanosis. No edema. NEUROLOGICAL: Awake and alert. Normal speech. - Urinary Catheter Management Indwelling Urethral Catheter Cath placed during this visit: yes, but has since been removed by the nurse Reason for continuing: Decision to DC catheter Insertion date: 06/21/18 Insertion time: 16:00 Removal date: 06/23/18 Removal time: 07:25 Results 06/21/18 15:10 06/22/18 04:45 Cardiac Enzymes 06/21/18 06/21/18 Range/Units 15:10 15:10 AST 19 (15-37) U/L Troponin I Less than 0.02 L (0.02-0.05) ng/mL B-Natriuretic Peptide 328 H (0-100) pg/mL Coagulation 06/21/18 Range/Units 15:10 B-Natriuretic Peptide 328 H (0-100) pg/mL CBC 06/21/18 Range/Units 15:10 WBC 7.4 (4.0-11.0) th/mm3 RBC 3.64 L (4.00-5.30) mil/mm3 Hgb 10.3 L (11.6-15.3) gm/dL Hct 31.9 L (35.0-46.0) % Plt Count 344 D (150-450) th/mm3 Neut # (Auto) 5.4 (1.8-7.7) th/mm3 Lymph # (Auto) 1.1 (1.0-4.8) th/mm3 [place] # (Auto) 0.6 (0.0-0.9) th/mm3 Eos # (Auto) 0.3 (0.0-0.4) th/mm3 Baso # (Auto) 0.0 (0.0-0.2) th/mm3 Comprehensive Metabolic Panel 06/21/18 06/22/18 Range/Units 15:10 04:45 Sodium 140 141 (136-145) meq/L Potassium 3.7 4.4 (3.5-5.1) meq/L Chloride 101 103 (98-107) meq/L Carbon Dioxide 30.1 31.1 (21.0-32.0) meq/L BUN 34 H 34 H (7-18) mg/dL Creatinine 1.60 H 1.60 H (0.50-1.00) mg/dL Calcium 8.8 8.6 (8.5-10.1) mg/dL AST 19 (15-37) U/L ALT 19 (10-53) U/L Alkaline Phosphatase 66 (45-117) U/L Total Protein 8.3 H (6.4-8.2) g/dL Albumin 3.8 (3.4-5.0) g/dL Intake and Output 06/22/18 06/23/18 06/23/18 22:59 06:59 14:59 Intake Total 240 / 240 120 / 120 Output Total 650 / 650 850 / 850 Balance -410 / -410 -730 / -730 Intake: Oral 240 / 240 120 / 120 Output: Urine 850 / 850 Urine Amount (Catheter) 650 / 650 Indwelling Urethral Catheter 650 / 650 Other: Date of Last Bowel Movement 06/19/18 Weight 118 lb 9.739 oz - Imaging and Cardiology Imaging: Impressions Chest X-Ray 06/21/18 15:06 CONCLUSION: Bibasilar infiltrates and effusions Chest X-Ray 06/22/18 00:00 CONCLUSION: Mild congestive heart failure with small bilateral pleural effusions. Findings similar to prior exam. 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 Acute exacerbation of diastolic CHF: Improving. IV Lasix converted to 40 mg p.o. twice daily with supplemental potassium. Monitor I's and O's, electrolytes , and renal function. Atypical chest pain: Troponin 0.02. EKG with NSR and no ischemic changes compared to EKG from earlier this month. Patient being discharged today, will arrange for outpatient Lexiscan. Continue aspirin and statin. Discussed Condition With: Patient, Dr. Herrera
[2018-06-23 08:05] LABS: Potassium 4.5 meq/L (3.5-5.1)
[2018-06-23 08:08] LABS: Calcium 8.6 mg/dL (8.5-10.1)
[2018-06-23 08:09] LABS: Carbon Dioxide 33.8 meq/L (21.0-32.0)
[2018-06-23] MEDS ORDERED: Furosemide 40 MG Tablet PO SCH (09:00)
[2018-06-23] MEDS: Carvedilol 12.5 MG Tablet PO SCH (10:12)
== END 2018-06-23 10:50 | disposition home health service (06) ==
LOC: PHEDA 14:35 → PHED 14:35 → PH3 16:40
PROVIDERS: ADMIT Family Medicine; ATTEND Family Medicine
DX: N25.81 Secondary hyperparathyroidism of renal origin; Z95.5 Presence of coronary angioplasty implant and graft; Z99.81 Dependence on supplemental oxygen; E78.5 Hyperlipidemia, unspecified; K21.9 Gastro-esophageal reflux disease without esophagitis; I13.0 Hypertensive heart and chronic kidney disease with heart failure and stage 1 through stage 4 chronic kidney disease, or unspecified chronic kidney disease; J44.9 Chronic obstructive pulmonary disease, unspecified; Z91.81 History of falling; N18.4 Chronic kidney disease, stage 4 (severe); Z90.49 Acquired absence of other specified parts of digestive tract; Z79.899 Other long term (current) drug therapy; Z90.710 Acquired absence of both cervix and uterus; I50.33 Acute on chronic diastolic (congestive) heart failure; I08.3 Combined rheumatic disorders of mitral, aortic and tricuspid valves; F17.210 Nicotine dependence, cigarettes, uncomplicated; R09.02 Hypoxemia; I73.9 Peripheral vascular disease, unspecified; I25.2 Old myocardial infarction